=== PATIENT | male | born 1950 | race Asian ===

== ENCOUNTER → 2023-08-24 13:31 | Outpatient (REF) | payer MEDICARE, OTHER, SELFPAY ==
[2023-08-27 17:04] LABS: FIT-Fecal Occult Blood Interp Positive
== END ==
LOC: HWLAB 13:31
PROVIDERS: ATTENDING PHYSICIAN Internal Medicine
DX: R14.3 Flatulence (principal); Z83.3 Family history of diabetes mellitus; Z12.11 Encounter for screening for malignant neoplasm of colon; I10 Essential (primary) hypertension
CPT/HCPCS: 36415; 83520

== ENCOUNTER → 2023-10-07 06:34 | Day surgery (SDC) | payer MEDICARE, OTHER, SELFPAY | LOC: GI 06:34 | PROVIDERS: ATTENDING PHYSICIAN Internal Medicine Gastroenterology | DX: Z12.11 Encounter for screening for malignant neoplasm of colon (principal); R19.5 Other fecal abnormalities; K56.690 Other partial intestinal obstruction; K64.0 First degree hemorrhoids; D12.3 Benign neoplasm of transverse colon; C20 Malignant neoplasm of rectum | CPT/HCPCS: 45380; 88305; 88342 ==

== ENCOUNTER → 2023-10-09 12:30 | Outpatient (REF) | payer MEDICARE, OTHER, SELFPAY ==
[2023-10-09 15:34] LABS: % Basophils 0.7 % (0-2); % Eosinophils 1.2 % (0-6); % Immature Granulocytes 0.2 % (0-0.5); % Lymphocytes 21.8 % (20.5-51.1); % Monocytes 4.9 % (1.7-9.3); % Neutrophils 71.2 % (42.2-75.2); Absolute Eosinophils 0.1 10^3/uL (0-0.7); Absolute Lymphocytes 1.3 10^3/uL (1.2-3.4); Absolute Monocytes 0.3 10^3/uL (0.1-0.6); Absolute Neutrophils 4.1 10^3/uL (1.4-6.5); Hemoglobin 12.9 g/dL (13.0-18.0); Mean Corp Hgb Conc. 33.1 g/dL (33.0-37.0); Mean Corpuscular Hgb 30.2 pg (27.0-31.0); Mean Corpuscular Volume 91.3 fL (80.0-94.0); Mean Platelet Volume 10.2 fL (7.4-10.4); Nucleated Red Blood Cells % 0 % (-); Platelet Count 241 10^3/uL (130-400); Red Blood Cell Count 4.27 10^6/uL (4.70-6.10); White Blood Cell Count 5.7 10^3/uL (4.8-10.8)
[2023-10-09 15:51] LABS: ALT (SGPT) 16 U/L (0-50); AST (SGOT) 26 U/L (17-59); Alkaline Phosphatase 65 U/L (38-126); Blood Urea Nitrogen 14 mg/dl (9-20); Calcium 9.9 mg/dl (8.4-10.2); Carbon Dioxide 30 mmol/L (22-30); Chloride 102 mmol/L (98-107); Glucose 118 mg/dl (70-99); Potassium 4.1 mmol/L (3.5-5.1); Sodium 139 mmol/L (135-145); Total Bilirubin 0.5 mg/dl (0.2-1.3); Total Protein 6.7 g/dl (6.3-8.2); eGFR > 60.00
[2023-10-09 16:36] LABS: CEA 8.25 ng/ml
== END ==
LOC: HWLAB 12:30
PROVIDERS: ATTENDING PHYSICIAN Surgery; FAMILY PHYSICIAN Internal Medicine
DX: K62.89 Other specified diseases of anus and rectum (principal)
CPT/HCPCS: 36415; 80053; 82378; 85025

== ENCOUNTER → 2023-10-14 11:29 | Outpatient (REF) | payer MEDICARE, OTHER, SELFPAY | LOC: MRI 3T 11:29 | PROVIDERS: ATTENDING PHYSICIAN Surgery; FAMILY PHYSICIAN Internal Medicine | DX: K62.89 Other specified diseases of anus and rectum (principal) | CPT/HCPCS: 72197; A9575 ==

== ENCOUNTER → 2023-10-15 09:07 | Outpatient (REF) | payer MEDICARE, OTHER, SELFPAY | LOC: HWRAD 09:07 | PROVIDERS: ATTENDING PHYSICIAN Surgery; FAMILY PHYSICIAN Internal Medicine | DX: K62.89 Other specified diseases of anus and rectum (principal) | CPT/HCPCS: 71260; 74177; Q9967 ==

== ENCOUNTER 2023-11-12 08:58 | Outpatient (REF) | payer MEDICARE, OTHER, SELFPAY ==
[2023-11-12 09:32] LABS: Hematocrit 41.7 % (39.0-52.0); Hemoglobin 13.4 g/dL (13.0-18.0); Mean Corp Hgb Conc. 32.1 g/dL (33.0-37.0); Mean Corpuscular Hgb 30.2 pg (27.0-31.0); Mean Corpuscular Volume 93.9 fL (80.0-94.0); Mean Platelet Volume 9.1 fL (7.4-10.4); Platelet Count 259 10^3/uL (130-400); Red Blood Cell Count 4.44 10^6/uL (4.70-6.10); Red Cell Dist. Width 12.9 % (11.5-14.5); White Blood Cell Count 7.2 10^3/uL (4.8-10.8)
[2023-11-12 09:35] VITALS: BP 134/73; BP_SYST 59
[2023-11-12 09:41] LABS: INR 0.94; PT 12.6 Sec (11.4-14.6)
[2023-11-12 12:45] VITALS: BP 129/76
[2023-11-12 13:15] VITALS: BP 129/76
[2023-11-12 13:45] VITALS: BP 116/75
[2023-11-12 14:32] VITALS: BP 104/66
== END 2023-11-12 14:45 | disposition home or self-care (01) ==
LOC: RADI 08:58
PROVIDERS: ATTENDING PHYSICIAN Internal Medicine Hematology & Oncology; FAMILY PHYSICIAN Internal Medicine
DX: C78.01 Secondary malignant neoplasm of right lung (principal); C19 Malignant neoplasm of rectosigmoid junction
CPT/HCPCS: 88305; 32408; 36415; 71045; 85027; 85610; 88333; 88341; 88342; 99152; 99153; C2613

== ENCOUNTER → 2023-11-30 12:46 | Outpatient (REF) | payer MEDICARE, OTHER, SELFPAY ==
[2023-11-30 17:07] LABS: % Basophils 0.5 % (0-2); % Eosinophils 1.8 % (0-6); % Immature Granulocytes 0.7 % (0-0.5); % Lymphocytes 18.2 % (20.5-51.1); % Monocytes 6.3 % (1.7-9.3); % Neutrophils 72.5 % (42.2-75.2); Absolute Eosinophils 0.1 10^3/uL (0-0.7); Absolute Lymphocytes 1.1 10^3/uL (1.2-3.4); Absolute Monocytes 0.4 10^3/uL (0.1-0.6); Absolute Neutrophils 4.4 10^3/uL (1.4-6.5); Hematocrit 39.1 % (39.0-52.0); Hemoglobin 12.7 g/dL (13.0-18.0); Mean Corp Hgb Conc. 32.5 g/dL (33.0-37.0); Mean Corpuscular Hgb 29.6 pg (27.0-31.0); Mean Corpuscular Volume 91.1 fL (80.0-94.0); Mean Platelet Volume 9.2 fL (7.4-10.4); Nucleated Red Blood Cells % 0 % (-); Platelet Count 301 10^3/uL (130-400); Red Blood Cell Count 4.29 10^6/uL (4.70-6.10); Red Cell Dist. Width 12.2 % (11.5-14.5)
[2023-11-30 17:14] LABS: ALT (SGPT) 13 U/L (0-50); AST (SGOT) 20 U/L (17-59); Albumin 4.1 g/dl (3.5-5.0); Blood Urea Nitrogen 20 mg/dl (9-20); Calcium 9.9 mg/dl (8.4-10.2); Carbon Dioxide 28 mmol/L (22-30); Chloride 102 mmol/L (98-107); Glucose 103 mg/dl (70-99); Potassium 4.6 mmol/L (3.5-5.1); Sodium 137 mmol/L (135-145); Total Bilirubin 0.5 mg/dl (0.2-1.3); Total Protein 7.2 g/dl (6.3-8.2); eGFR > 60.00
[2023-11-30 18:24] LABS: Alkaline Phosphatase 75 U/L (38-126)
== END ==
LOC: HWLAB 12:46
PROVIDERS: ATTENDING PHYSICIAN Internal Medicine Hematology & Oncology; FAMILY PHYSICIAN Internal Medicine
DX: C20 Malignant neoplasm of rectum (principal); R91.1 Solitary pulmonary nodule; C77.2 Secondary and unspecified malignant neoplasm of intra-abdominal lymph nodes
CPT/HCPCS: 36415; 80053; 85025

== ENCOUNTER → 2023-12-07 12:34 | Outpatient (REF) | payer MEDICARE, OTHER, SELFPAY ==
[2023-12-07 15:48] LABS: % Basophils 0.4 % (0-2); % Eosinophils 2.2 % (0-6); % Immature Granulocytes 0.2 % (0-0.5); % Monocytes 8.8 % (1.7-9.3); % Neutrophils 72.4 % (42.2-75.2); Absolute Eosinophils 0.1 10^3/uL (0-0.7); Absolute Lymphocytes 0.8 10^3/uL (1.2-3.4); Absolute Monocytes 0.4 10^3/uL (0.1-0.6); Absolute Neutrophils 3.6 10^3/uL (1.4-6.5); Hematocrit 37.5 % (39.0-52.0); Hemoglobin 12.2 g/dL (13.0-18.0); Mean Corp Hgb Conc. 32.5 g/dL (33.0-37.0); Mean Corpuscular Hgb 30.1 pg (27.0-31.0); Mean Corpuscular Volume 92.6 fL (80.0-94.0); Mean Platelet Volume 9.8 fL (7.4-10.4); Nucleated Red Blood Cells % 0 % (-); Platelet Count 191 10^3/uL (130-400); Red Blood Cell Count 4.05 10^6/uL (4.70-6.10); Red Cell Dist. Width 12.6 % (11.5-14.5)
== END ==
LOC: HWLAB 12:34
PROVIDERS: ATTENDING PHYSICIAN Internal Medicine Hematology & Oncology; FAMILY PHYSICIAN Internal Medicine
DX: C20 Malignant neoplasm of rectum (principal); R91.1 Solitary pulmonary nodule; C77.2 Secondary and unspecified malignant neoplasm of intra-abdominal lymph nodes
CPT/HCPCS: 36415; 85025

== ENCOUNTER → 2023-12-14 12:45 | Outpatient (REF) | payer MEDICARE, OTHER, SELFPAY ==
[2023-12-14 16:04] LABS: % Basophils 0.7 % (0-2); % Eosinophils 3.1 % (0-6); % Immature Granulocytes 0.2 % (0-0.5); % Lymphocytes 14.9 % (20.5-51.1); % Monocytes 7.7 % (1.7-9.3); % Neutrophils 73.4 % (42.2-75.2); Absolute Eosinophils 0.1 10^3/uL (0-0.7); Absolute Lymphocytes 0.7 10^3/uL (1.2-3.4); Absolute Monocytes 0.4 10^3/uL (0.1-0.6); Absolute Neutrophils 3.4 10^3/uL (1.4-6.5); Hematocrit 35.8 % (39.0-52.0); Hemoglobin 11.7 g/dL (13.0-18.0); Mean Corp Hgb Conc. 32.7 g/dL (33.0-37.0); Mean Corpuscular Hgb 29.5 pg (27.0-31.0); Mean Corpuscular Volume 90.4 fL (80.0-94.0); Mean Platelet Volume 9.2 fL (7.4-10.4); Nucleated Red Blood Cells % 0 % (-); Platelet Count 191 10^3/uL (130-400); Red Blood Cell Count 3.96 10^6/uL (4.70-6.10); Red Cell Dist. Width 13.2 % (11.5-14.5); White Blood Cell Count 4.6 10^3/uL (4.8-10.8)
[2023-12-14 16:13] LABS: ALT (SGPT) 13 U/L (0-50); AST (SGOT) 20 U/L (17-59); Albumin 3.9 g/dl (3.5-5.0); Alkaline Phosphatase 69 U/L (38-126); Blood Urea Nitrogen 14 mg/dl (9-20); Calcium 9.4 mg/dl (8.4-10.2); Carbon Dioxide 28 mmol/L (22-30); Chloride 103 mmol/L (98-107); Glucose 106 mg/dl (70-99); Potassium 4.1 mmol/L (3.5-5.1); Sodium 137 mmol/L (135-145); Total Bilirubin 0.4 mg/dl (0.2-1.3); Total Protein 6.6 g/dl (6.3-8.2); eGFR > 60.00
== END ==
LOC: HWLAB 12:45
PROVIDERS: ATTENDING PHYSICIAN Internal Medicine Hematology & Oncology; FAMILY PHYSICIAN Internal Medicine
DX: C20 Malignant neoplasm of rectum (principal); R91.1 Solitary pulmonary nodule; C77.2 Secondary and unspecified malignant neoplasm of intra-abdominal lymph nodes
CPT/HCPCS: 36415; 80053; 85025

== ENCOUNTER → 2023-12-21 09:04 | Outpatient (REF) | payer MEDICARE, OTHER, SELFPAY ==
[2023-12-21 11:26] LABS: % Basophils 0.5 % (0-2); % Eosinophils 2.4 % (0-6); % Immature Granulocytes 0.2 % (0-0.5); % Lymphocytes 11.1 % (20.5-51.1); % Monocytes 9.2 % (1.7-9.3); % Neutrophils 76.6 % (42.2-75.2); Absolute Eosinophils 0.2 10^3/uL (0-0.7); Absolute Lymphocytes 0.7 10^3/uL (1.2-3.4); Absolute Monocytes 0.6 10^3/uL (0.1-0.6); Absolute Neutrophils 4.8 10^3/uL (1.4-6.5); Hematocrit 37.9 % (39.0-52.0); Hemoglobin 11.8 g/dL (13.0-18.0); Mean Corp Hgb Conc. 31.1 g/dL (33.0-37.0); Mean Corpuscular Hgb 29.4 pg (27.0-31.0); Mean Corpuscular Volume 94.5 fL (80.0-94.0); Mean Platelet Volume 8.9 fL (7.4-10.4); Nucleated Red Blood Cells % 0 % (-); Platelet Count 210 10^3/uL (130-400); Red Blood Cell Count 4.01 10^6/uL (4.70-6.10); Red Cell Dist. Width 13.8 % (11.5-14.5); White Blood Cell Count 6.3 10^3/uL (4.8-10.8)
== END ==
LOC: HWLAB 09:04
PROVIDERS: ATTENDING PHYSICIAN Internal Medicine Hematology & Oncology; FAMILY PHYSICIAN Internal Medicine
DX: C20 Malignant neoplasm of rectum (principal); R91.1 Solitary pulmonary nodule; C77.2 Secondary and unspecified malignant neoplasm of intra-abdominal lymph nodes
CPT/HCPCS: 85025

== ENCOUNTER → 2023-12-28 08:34 | Outpatient (REF) | payer MEDICARE, OTHER, SELFPAY ==
[2023-12-28 10:00] LABS: % Basophils 0.4 % (0-2); % Immature Granulocytes 0.2 % (0-0.5); % Lymphocytes 11.5 % (20.5-51.1); % Monocytes 10.4 % (1.7-9.3); % Neutrophils 73.5 % (42.2-75.2); Absolute Eosinophils 0.2 10^3/uL (0-0.7); Absolute Lymphocytes 0.6 10^3/uL (1.2-3.4); Absolute Monocytes 0.5 10^3/uL (0.1-0.6); Absolute Neutrophils 3.5 10^3/uL (1.4-6.5); Hematocrit 37.1 % (39.0-52.0); Hemoglobin 12.2 g/dL (13.0-18.0); Mean Corp Hgb Conc. 32.9 g/dL (33.0-37.0); Mean Corpuscular Hgb 30.3 pg (27.0-31.0); Mean Corpuscular Volume 92.3 fL (80.0-94.0); Mean Platelet Volume 8.6 fL (7.4-10.4); Nucleated Red Blood Cells % 0 % (-); Platelet Count 253 10^3/uL (130-400); Red Blood Cell Count 4.02 10^6/uL (4.70-6.10); Red Cell Dist. Width 14.6 % (11.5-14.5); White Blood Cell Count 4.8 10^3/uL (4.8-10.8)
[2023-12-28 10:21] LABS: ALT (SGPT) 12 U/L (0-50); AST (SGOT) 17 U/L (17-59); Albumin 3.9 g/dl (3.5-5.0); Alkaline Phosphatase 65 U/L (38-126); Blood Urea Nitrogen 14 mg/dl (9-20); Calcium 9.4 mg/dl (8.4-10.2); Carbon Dioxide 30 mmol/L (22-30); Chloride 101 mmol/L (98-107); Glucose 117 mg/dl (70-99); Potassium 4.2 mmol/L (3.5-5.1); Sodium 140 mmol/L (135-145); Total Bilirubin 0.5 mg/dl (0.2-1.3); Total Protein 6.7 g/dl (6.3-8.2); eGFR > 60.00
== END ==
LOC: HWLAB 08:34
PROVIDERS: ATTENDING PHYSICIAN Internal Medicine Hematology & Oncology; FAMILY PHYSICIAN Internal Medicine
DX: C20 Malignant neoplasm of rectum (principal); R91.1 Solitary pulmonary nodule; C77.2 Secondary and unspecified malignant neoplasm of intra-abdominal lymph nodes
CPT/HCPCS: 36415; 80053; 85025

== ENCOUNTER → 2024-01-04 08:16 | Outpatient (REF) | payer MEDICARE, OTHER, SELFPAY ==
[2024-01-04 13:05] LABS: % Basophils 0.4 % (0-2); % Eosinophils 3.2 % (0-6); % Immature Granulocytes 0.4 % (0-0.5); % Lymphocytes 8.3 % (20.5-51.1); % Monocytes 10.5 % (1.7-9.3); % Neutrophils 77.2 % (42.2-75.2); Absolute Eosinophils 0.2 10^3/uL (0-0.7); Absolute Lymphocytes 0.4 10^3/uL (1.2-3.4); Absolute Monocytes 0.5 10^3/uL (0.1-0.6); Absolute Neutrophils 3.9 10^3/uL (1.4-6.5); Hematocrit 36.8 % (39.0-52.0); Hemoglobin 12.1 g/dL (13.0-18.0); Mean Corp Hgb Conc. 32.9 g/dL (33.0-37.0); Mean Corpuscular Hgb 30.3 pg (27.0-31.0); Mean Corpuscular Volume 92.2 fL (80.0-94.0); Mean Platelet Volume 9.4 fL (7.4-10.4); Nucleated Red Blood Cells % 0 % (-); Platelet Count 229 10^3/uL (130-400); Red Blood Cell Count 3.99 10^6/uL (4.70-6.10); Red Cell Dist. Width 15.8 % (11.5-14.5)
== END ==
LOC: HWLAB 08:16
PROVIDERS: ATTENDING PHYSICIAN Internal Medicine Hematology & Oncology; FAMILY PHYSICIAN Internal Medicine
DX: C20 Malignant neoplasm of rectum (principal); R91.1 Solitary pulmonary nodule; C77.2 Secondary and unspecified malignant neoplasm of intra-abdominal lymph nodes
CPT/HCPCS: 36415; 85025

== ENCOUNTER → 2024-01-11 11:20 | Outpatient (REF) | payer MEDICARE, OTHER, SELFPAY ==
[2024-01-11 15:15] LABS: % Basophils 0.6 % (0-2); % Eosinophils 2.6 % (0-6); % Immature Granulocytes 0.4 % (0-0.5); % Lymphocytes 7.9 % (20.5-51.1); % Monocytes 10.4 % (1.7-9.3); % Neutrophils 78.1 % (42.2-75.2); Absolute Eosinophils 0.1 10^3/uL (0-0.7); Absolute Lymphocytes 0.4 10^3/uL (1.2-3.4); Absolute Monocytes 0.5 10^3/uL (0.1-0.6); Hematocrit 36.9 % (39.0-52.0); Hemoglobin 12.3 g/dL (13.0-18.0); Mean Corp Hgb Conc. 33.3 g/dL (33.0-37.0); Mean Corpuscular Hgb 31.7 pg (27.0-31.0); Mean Corpuscular Volume 95.1 fL (80.0-94.0); Mean Platelet Volume 9.2 fL (7.4-10.4); Nucleated Red Blood Cells % 0 % (-); Platelet Count 197 10^3/uL (130-400); Red Blood Cell Count 3.88 10^6/uL (4.70-6.10); Red Cell Dist. Width 16.3 % (11.5-14.5); White Blood Cell Count 5.1 10^3/uL (4.8-10.8)
[2024-01-11 15:26] LABS: ALT (SGPT) 18 U/L (0-50); AST (SGOT) 28 U/L (17-59); Albumin 3.9 g/dl (3.5-5.0); Alkaline Phosphatase 75 U/L (38-126); Blood Urea Nitrogen 19 mg/dl (9-20); Calcium 9.4 mg/dl (8.4-10.2); Carbon Dioxide 30 mmol/L (22-30); Chloride 103 mmol/L (98-107); Glucose 147 mg/dl (70-99); Potassium 4.3 mmol/L (3.5-5.1); Sodium 140 mmol/L (135-145); Total Bilirubin 0.7 mg/dl (0.2-1.3); Total Protein 6.6 g/dl (6.3-8.2); eGFR > 60.00
== END ==
LOC: HWLAB 11:20
PROVIDERS: ATTENDING PHYSICIAN Internal Medicine Hematology & Oncology; FAMILY PHYSICIAN Internal Medicine
DX: C20 Malignant neoplasm of rectum (principal); R91.1 Solitary pulmonary nodule; C77.2 Secondary and unspecified malignant neoplasm of intra-abdominal lymph nodes
CPT/HCPCS: 36415; 80053; 85025

== ENCOUNTER → 2024-01-18 10:42 | Outpatient (REF) | payer MEDICARE, OTHER, SELFPAY ==
[2024-01-18 12:34] LABS: % Basophils 0.7 % (0-2); % Eosinophils 2.6 % (0-6); % Immature Granulocytes 0.2 % (0-0.5); % Lymphocytes 15.9 % (20.5-51.1); % Monocytes 9.9 % (1.7-9.3); % Neutrophils 70.7 % (42.2-75.2); Absolute Eosinophils 0.1 10^3/uL (0-0.7); Absolute Lymphocytes 0.7 10^3/uL (1.2-3.4); Absolute Monocytes 0.5 10^3/uL (0.1-0.6); Absolute Neutrophils 3.2 10^3/uL (1.4-6.5); Hematocrit 36.9 % (39.0-52.0); Hemoglobin 12.1 g/dL (13.0-18.0); Mean Corp Hgb Conc. 32.8 g/dL (33.0-37.0); Mean Corpuscular Hgb 30.3 pg (27.0-31.0); Mean Corpuscular Volume 92.5 fL (80.0-94.0); Mean Platelet Volume 9.1 fL (7.4-10.4); Nucleated Red Blood Cells % 0 % (-); Platelet Count 263 10^3/uL (130-400); Red Blood Cell Count 3.99 10^6/uL (4.70-6.10); Red Cell Dist. Width 15.9 % (11.5-14.5); White Blood Cell Count 4.5 10^3/uL (4.8-10.8)
== END ==
LOC: HWLAB 10:42
PROVIDERS: ATTENDING PHYSICIAN Internal Medicine Hematology & Oncology; FAMILY PHYSICIAN Internal Medicine
DX: C20 Malignant neoplasm of rectum (principal); R91.1 Solitary pulmonary nodule; C77.2 Secondary and unspecified malignant neoplasm of intra-abdominal lymph nodes
CPT/HCPCS: 36415; 85025

== ENCOUNTER 2024-02-03 06:24 | Day surgery (SDC) | payer MEDICARE, OTHER, SELFPAY ==
[2024-02-02 14:07] VITALS: BMI 25.0
[2024-02-03] VITALS (7 sets, daily range): BP systolic 105–142; BP diastolic 60–84; BMI 25.0
== END 2024-02-03 16:45 | disposition home or self-care (01) ==
LOC: SDS 06:24
PROVIDERS: ATTENDING PHYSICIAN Surgery; FAMILY PHYSICIAN Surgery Vascular Surgery
DX: C20 Malignant neoplasm of rectum (principal)
CPT/HCPCS: 36561; 36415; 71045; 76000; 93005; C1788

== ENCOUNTER → 2024-03-01 09:27 | Outpatient (REF) | payer MEDICARE, OTHER, SELFPAY ==
[2024-03-01 11:50] LABS: ALT (SGPT) 14 U/L (0-50); AST (SGOT) 22 U/L (17-59); Alkaline Phosphatase 73 U/L (38-126); Blood Urea Nitrogen 16 mg/dl (9-20); Calcium 9.4 mg/dl (8.4-10.2); Carbon Dioxide 27 mmol/L (22-30); Chloride 105 mmol/L (98-107); Glucose 105 mg/dl (70-99); HDL Cholesterol 68 mg/dl; LDL Cholesterol, Calculated 103 mg/dl; Sodium 141 mmol/L (135-145); Total Bilirubin 0.9 mg/dl (0.2-1.3); Total Cholesterol 183 mg/dl (50-199); Total Protein 6.8 g/dl (6.3-8.2); Triglyceride 62 mg/dl (10-149); Very Low Density Lipoprotein 12 mg/dl (0-30); eGFR > 60.00
[2024-03-01 11:52] LABS: % Basophils 0.5 % (0-2); % Eosinophils 2.6 % (0-6); % Immature Granulocytes 0.3 % (0-0.5); % Lymphocytes 13.1 % (20.5-51.1); % Monocytes 7.8 % (1.7-9.3); % Neutrophils 75.7 % (42.2-75.2); Absolute Eosinophils 0.1 10^3/uL (0-0.7); Absolute Lymphocytes 0.5 10^3/uL (1.2-3.4); Absolute Monocytes 0.3 10^3/uL (0.1-0.6); Absolute Neutrophils 2.9 10^3/uL (1.4-6.5); Hematocrit 39.1 % (39.0-52.0); Mean Corp Hgb Conc. 33.2 g/dL (33.0-37.0); Mean Corpuscular Hgb 31.6 pg (27.0-31.0); Mean Corpuscular Volume 94.9 fL (80.0-94.0); Mean Platelet Volume 9.2 fL (7.4-10.4); Nucleated Red Blood Cells % 0 % (-); Platelet Count 201 10^3/uL (130-400); Red Blood Cell Count 4.12 10^6/uL (4.70-6.10); Red Cell Dist. Width 14.6 % (11.5-14.5); White Blood Cell Count 3.8 10^3/uL (4.8-10.8)
[2024-03-01 12:58] LABS: Glycohemoglobin (HgbA1c) 5.9 % (4.0-5.6)
[2024-03-02 10:53] LABS: IgA 380 mg/dl (70-400)
[2024-03-02 14:11] LABS: tTG IgA Antibody 11.8 EU/ml (0-19)
[2024-03-04 00:53] LABS: Gliadin Peptide (DGP) Ab, IgA <0.72 FLU (0.00-4.99)
== END ==
LOC: HWLAB 09:27
PROVIDERS: ATTENDING PHYSICIAN Internal Medicine
DX: I10 Essential (primary) hypertension (principal); Z83.3 Family history of diabetes mellitus; C20 Malignant neoplasm of rectum
CPT/HCPCS: 36415; 80053; 80061; 82784; 83036; 83516; 85025; 86231; 86258

== ENCOUNTER → 2024-03-29 09:18 | Outpatient (REF) | payer MEDICARE, OTHER, SELFPAY ==
[2024-03-29 12:19] LABS: % Basophils 0.2 % (0-2); % Eosinophils 0.9 % (0-6); % Immature Granulocytes 0.2 % (0-0.5); % Lymphocytes 4.8 % (20.5-51.1); % Monocytes 6.3 % (1.7-9.3); % Neutrophils 87.6 % (42.2-75.2); Absolute Eosinophils 0.1 10^3/uL (0-0.7); Absolute Lymphocytes 0.3 10^3/uL (1.2-3.4); Absolute Monocytes 0.4 10^3/uL (0.1-0.6); Absolute Neutrophils 5.1 10^3/uL (1.4-6.5); Hematocrit 38.7 % (39.0-52.0); Hemoglobin 12.6 g/dL (13.0-18.0); Mean Corp Hgb Conc. 32.6 g/dL (33.0-37.0); Mean Corpuscular Hgb 30.3 pg (27.0-31.0); Mean Platelet Volume 9.1 fL (7.4-10.4); Nucleated Red Blood Cells % 0 % (-); Platelet Count 184 10^3/uL (130-400); Red Blood Cell Count 4.16 10^6/uL (4.70-6.10); Red Cell Dist. Width 13.2 % (11.5-14.5); White Blood Cell Count 5.9 10^3/uL (4.8-10.8)
[2024-03-29 13:43] LABS: ALT (SGPT) 17 U/L (0-50); AST (SGOT) 20 U/L (17-59); Albumin 4.1 g/dl (3.5-5.0); Alkaline Phosphatase 58 U/L (38-126); Blood Urea Nitrogen 15 mg/dl (9-20); Calcium 9.3 mg/dl (8.4-10.2); Carbon Dioxide 27 mmol/L (22-30); Chloride 100 mmol/L (98-107); Glucose 136 mg/dl (70-99); Potassium 4.3 mmol/L (3.5-5.1); Sodium 138 mmol/L (135-145); Total Bilirubin 0.9 mg/dl (0.2-1.3); Total Protein 6.9 g/dl (6.3-8.2); eGFR > 60.00
[2024-03-29 14:11] LABS: CEA 5.75 ng/ml
== END ==
LOC: HWLAB 09:18
PROVIDERS: ATTENDING PHYSICIAN Internal Medicine Hematology & Oncology; FAMILY PHYSICIAN Internal Medicine
DX: C20 Malignant neoplasm of rectum (principal); R91.1 Solitary pulmonary nodule; C77.2 Secondary and unspecified malignant neoplasm of intra-abdominal lymph nodes
CPT/HCPCS: 36415; 80053; 82378; 85025

== ENCOUNTER → 2024-04-11 10:27 | Outpatient (REF) | payer MEDICARE, OTHER, SELFPAY ==
[2024-04-11 11:18] LABS: % Basophils 0.6 % (0-2); % Eosinophils 2.1 % (0-6); % Immature Granulocytes 0.3 % (0-0.5); % Lymphocytes 19.3 % (20.5-51.1); % Monocytes 10.3 % (1.7-9.3); % Neutrophils 67.4 % (42.2-75.2); Absolute Eosinophils 0.1 10^3/uL (0-0.7); Absolute Lymphocytes 0.6 10^3/uL (1.2-3.4); Absolute Monocytes 0.3 10^3/uL (0.1-0.6); Absolute Neutrophils 2.2 10^3/uL (1.4-6.5); Hemoglobin 12.7 g/dL (13.0-18.0); Mean Corp Hgb Conc. 33.4 g/dL (33.0-37.0); Mean Corpuscular Hgb 31.7 pg (27.0-31.0); Mean Corpuscular Volume 94.8 fL (80.0-94.0); Mean Platelet Volume 8.7 fL (7.4-10.4); Nucleated Red Blood Cells % 0 % (-); Platelet Count 152 10^3/uL (130-400); Red Blood Cell Count 4.01 10^6/uL (4.70-6.10); Red Cell Dist. Width 13.2 % (11.5-14.5); White Blood Cell Count 3.3 10^3/uL (4.8-10.8)
[2024-04-11 11:28] LABS: ALT (SGPT) 18 U/L (0-50); AST (SGOT) 19 U/L (17-59); Albumin 3.9 g/dl (3.5-5.0); Alkaline Phosphatase 59 U/L (38-126); Blood Urea Nitrogen 17 mg/dl (9-20); Calcium 9.1 mg/dl (8.4-10.2); Carbon Dioxide 30 mmol/L (22-30); Chloride 103 mmol/L (98-107); Glucose 112 mg/dl (70-99); Potassium 4.1 mmol/L (3.5-5.1); Sodium 142 mmol/L (135-145); Total Bilirubin 0.1 mg/dl (0.2-1.3); Total Protein 6.4 g/dl (6.3-8.2); eGFR > 60.00
== END ==
LOC: HWLAB 10:27
PROVIDERS: ATTENDING PHYSICIAN Internal Medicine Hematology & Oncology; FAMILY PHYSICIAN Internal Medicine
DX: C20 Malignant neoplasm of rectum (principal); R91.1 Solitary pulmonary nodule; C77.2 Secondary and unspecified malignant neoplasm of intra-abdominal lymph nodes
CPT/HCPCS: 36415; 80053; 85025

== ENCOUNTER → 2024-04-13 13:52 | Outpatient (REF) | payer MEDICARE, OTHER, SELFPAY ==
[2024-04-13 10:36] LABS: Iron 129 ug/dl (49-181)
[2024-04-13 10:45] LABS: Percent Saturation 44 % (20-50); Total Iron Binding Capacity 290 ug/dl (261-462)
[2024-04-13 11:12] LABS: Ferritin 89.4 ng/ml (17.9-464.0)
== END ==
LOC: OIDL 13:52
PROVIDERS: ATTENDING PHYSICIAN Nurse Practitioner Adult Health
DX: C20 Malignant neoplasm of rectum (principal); C77.2 Secondary and unspecified malignant neoplasm of intra-abdominal lymph nodes; R91.1 Solitary pulmonary nodule
CPT/HCPCS: 82728; 83540; 83550

== ENCOUNTER → 2024-04-25 09:38 | Outpatient (REF) | payer MEDICARE, OTHER, SELFPAY ==
[2024-04-25 11:23] LABS: % Basophils 0.5 % (0-2); % Eosinophils 0.8 % (0-6); % Immature Granulocytes 0.3 % (0-0.5); % Lymphocytes 21.2 % (20.5-51.1); % Monocytes 13.4 % (1.7-9.3); % Neutrophils 63.8 % (42.2-75.2); Absolute Lymphocytes 0.8 10^3/uL (1.2-3.4); Absolute Monocytes 0.5 10^3/uL (0.1-0.6); Absolute Neutrophils 2.5 10^3/uL (1.4-6.5); Hematocrit 36.8 % (39.0-52.0); Hemoglobin 12.2 g/dL (13.0-18.0); Mean Corp Hgb Conc. 33.2 g/dL (33.0-37.0); Mean Corpuscular Volume 93.4 fL (80.0-94.0); Mean Platelet Volume 8.8 fL (7.4-10.4); Nucleated Red Blood Cells % 0 % (-); Platelet Count 134 10^3/uL (130-400); Red Blood Cell Count 3.94 10^6/uL (4.70-6.10); Red Cell Dist. Width 13.4 % (11.5-14.5)
[2024-04-25 11:43] LABS: ALT (SGPT) 21 U/L (0-50); AST (SGOT) 20 U/L (17-59); Albumin 3.9 g/dl (3.5-5.0); Alkaline Phosphatase 63 U/L (38-126); Blood Urea Nitrogen 22 mg/dl (9-20); Carbon Dioxide 24 mmol/L (22-30); Chloride 104 mmol/L (98-107); Glucose 128 mg/dl (70-99); Sodium 140 mmol/L (135-145); Total Bilirubin 0.2 mg/dl (0.2-1.3); Total Protein 6.5 g/dl (6.3-8.2); eGFR > 60.00
== END ==
LOC: HWLAB 09:38
PROVIDERS: ATTENDING PHYSICIAN Internal Medicine Hematology & Oncology; FAMILY PHYSICIAN Internal Medicine
DX: C20 Malignant neoplasm of rectum (principal); R91.1 Solitary pulmonary nodule; C77.2 Secondary and unspecified malignant neoplasm of intra-abdominal lymph nodes
CPT/HCPCS: 36415; 80053; 85025

== ENCOUNTER → 2024-04-27 15:51 | Outpatient (REF) | payer MEDICARE, OTHER, SELFPAY ==
[2024-04-27 14:36] LABS: CEA 4.84 ng/ml
== END ==
LOC: OIDL 15:51
PROVIDERS: ATTENDING PHYSICIAN Nurse Practitioner Adult Health
DX: C20 Malignant neoplasm of rectum (principal)
CPT/HCPCS: 82378

== ENCOUNTER → 2024-05-09 09:37 | Outpatient (REF) | payer MEDICARE, OTHER, SELFPAY ==
[2024-05-09 11:59] LABS: % Basophils 0.8 % (0-2); % Immature Granulocytes 0.3 % (0-0.5); % Lymphocytes 15.9 % (20.5-51.1); Absolute Lymphocytes 0.6 10^3/uL (1.2-3.4); Absolute Monocytes 0.4 10^3/uL (0.1-0.6); Absolute Neutrophils 2.8 10^3/uL (1.4-6.5); Hematocrit 38.4 % (39.0-52.0); Hemoglobin 12.8 g/dL (13.0-18.0); Mean Corp Hgb Conc. 33.3 g/dL (33.0-37.0); Mean Corpuscular Hgb 31.7 pg (27.0-31.0); Nucleated Red Blood Cells % 0 % (-); Platelet Count 98 10^3/uL (130-400); Red Blood Cell Count 4.04 10^6/uL (4.70-6.10); Red Cell Dist. Width 14.4 % (11.5-14.5); White Blood Cell Count 3.9 10^3/uL (4.8-10.8)
[2024-05-09 12:23] LABS: ALT (SGPT) 50 U/L (0-50); AST (SGOT) 44 U/L (17-59); Albumin 4.1 g/dl (3.5-5.0); Alkaline Phosphatase 68 U/L (38-126); Blood Urea Nitrogen 22 mg/dl (9-20); Calcium 9.2 mg/dl (8.4-10.2); Carbon Dioxide 27 mmol/L (22-30); Chloride 102 mmol/L (98-107); Glucose 124 mg/dl (70-99); Potassium 4.3 mmol/L (3.5-5.1); Sodium 141 mmol/L (135-145); Total Bilirubin 0.2 mg/dl (0.2-1.3); Total Protein 6.8 g/dl (6.3-8.2); eGFR > 60.00
== END ==
LOC: HWLAB 09:37
PROVIDERS: ATTENDING PHYSICIAN Internal Medicine Hematology & Oncology; FAMILY PHYSICIAN Internal Medicine
DX: C20 Malignant neoplasm of rectum (principal); R91.1 Solitary pulmonary nodule; C77.2 Secondary and unspecified malignant neoplasm of intra-abdominal lymph nodes
CPT/HCPCS: 36415; 80053; 85025

== ENCOUNTER → 2024-05-23 09:07 | Outpatient (REF) | payer MEDICARE, OTHER, SELFPAY ==
[2024-05-23 12:21] LABS: % Basophils 0.4 % (0-2); % Eosinophils 0.4 % (0-6); % Immature Granulocytes 0.2 % (0-0.5); % Lymphocytes 10.7 % (20.5-51.1); % Monocytes 13.3 % (1.7-9.3); Absolute Lymphocytes 0.5 10^3/uL (1.2-3.4); Absolute Monocytes 0.7 10^3/uL (0.1-0.6); Absolute Neutrophils 3.8 10^3/uL (1.4-6.5); Hemoglobin 12.4 g/dL (13.0-18.0); Mean Corp Hgb Conc. 32.6 g/dL (33.0-37.0); Mean Corpuscular Hgb 31.2 pg (27.0-31.0); Mean Corpuscular Volume 95.5 fL (80.0-94.0); Mean Platelet Volume 10.4 fL (7.4-10.4); Nucleated Red Blood Cells % 0 % (-); Platelet Count 70 10^3/uL (130-400); Red Blood Cell Count 3.98 10^6/uL (4.70-6.10); Red Cell Dist. Width 15.1 % (11.5-14.5)
[2024-05-23 12:24] LABS: ALT (SGPT) 111 U/L (0-50); AST (SGOT) 74 U/L (17-59); Albumin 3.7 g/dl (3.5-5.0); Alkaline Phosphatase 114 U/L (38-126); Blood Urea Nitrogen 13 mg/dl (9-20); Carbon Dioxide 29 mmol/L (22-30); Chloride 106 mmol/L (98-107); Glucose 114 mg/dl (70-99); Potassium 4.1 mmol/L (3.5-5.1); Sodium 140 mmol/L (135-145); Total Bilirubin 0.9 mg/dl (0.2-1.3); Total Protein 6.5 g/dl (6.3-8.2); eGFR > 60.00
== END ==
LOC: HWLAB 09:07
PROVIDERS: ATTENDING PHYSICIAN Internal Medicine Hematology & Oncology; FAMILY PHYSICIAN Internal Medicine
DX: C20 Malignant neoplasm of rectum (principal); R91.1 Solitary pulmonary nodule; C77.2 Secondary and unspecified malignant neoplasm of intra-abdominal lymph nodes
CPT/HCPCS: 36415; 80053; 85025

== ENCOUNTER → 2024-06-06 10:35 | Outpatient (REF) | payer MEDICARE, OTHER, SELFPAY ==
[2024-06-06 16:37] LABS: ALT (SGPT) 49 U/L (0-50); AST (SGOT) 45 U/L (17-59); Albumin 3.7 g/dl (3.5-5.0); Alkaline Phosphatase 121 U/L (38-126); Blood Urea Nitrogen 14 mg/dl (9-20); Calcium 8.9 mg/dl (8.4-10.2); Carbon Dioxide 29 mmol/L (22-30); Chloride 103 mmol/L (98-107); Glucose 122 mg/dl (70-99); Potassium 3.9 mmol/L (3.5-5.1); Sodium 140 mmol/L (135-145); Total Bilirubin 0.8 mg/dl (0.2-1.3); Total Protein 6.5 g/dl (6.3-8.2); eGFR > 60.00
[2024-06-06 16:46] LABS: % Basophils 0.4 % (0-2); % Eosinophils 0.2 % (0-6); % Immature Granulocytes 0.2 % (0-0.5); % Lymphocytes 6.9 % (20.5-51.1); % Neutrophils 79.3 % (42.2-75.2); Absolute Lymphocytes 0.3 10^3/uL (1.2-3.4); Absolute Monocytes 0.6 10^3/uL (0.1-0.6); Absolute Neutrophils 3.7 10^3/uL (1.4-6.5); Hematocrit 37.3 % (39.0-52.0); Mean Corp Hgb Conc. 32.2 g/dL (33.0-37.0); Mean Corpuscular Hgb 31.1 pg (27.0-31.0); Mean Corpuscular Volume 96.6 fL (80.0-94.0); Mean Platelet Volume 10.7 fL (7.4-10.4); Nucleated Red Blood Cells % 0 % (-); Platelet Count 98 10^3/uL (130-400); Red Blood Cell Count 3.86 10^6/uL (4.70-6.10); Red Cell Dist. Width 14.8 % (11.5-14.5); White Blood Cell Count 4.6 10^3/uL (4.8-10.8)
== END ==
LOC: HWLAB 10:35
PROVIDERS: ATTENDING PHYSICIAN Internal Medicine Hematology & Oncology; FAMILY PHYSICIAN Internal Medicine
DX: C20 Malignant neoplasm of rectum (principal); R91.1 Solitary pulmonary nodule; C77.2 Secondary and unspecified malignant neoplasm of intra-abdominal lymph nodes
CPT/HCPCS: 36415; 80053; 85025

== ENCOUNTER → 2024-06-27 10:24 | Outpatient (REF) | payer MEDICARE, OTHER, SELFPAY ==
[2024-06-27 12:16] LABS: % Basophils 0.8 % (0-2); % Eosinophils 0.8 % (0-6); % Immature Granulocytes 0.4 % (0-0.5); % Lymphocytes 23.1 % (20.5-51.1); % Neutrophils 56.9 % (42.2-75.2); Absolute Lymphocytes 0.6 10^3/uL (1.2-3.4); Absolute Monocytes 0.5 10^3/uL (0.1-0.6); Absolute Neutrophils 1.5 10^3/uL (1.4-6.5); Hematocrit 37.8 % (39.0-52.0); Mean Corp Hgb Conc. 31.7 g/dL (33.0-37.0); Mean Corpuscular Hgb 31.3 pg (27.0-31.0); Mean Corpuscular Volume 98.7 fL (80.0-94.0); Mean Platelet Volume 9.1 fL (7.4-10.4); Nucleated Red Blood Cells % 0 % (-); Platelet Count 185 10^3/uL (130-400); Red Blood Cell Count 3.83 10^6/uL (4.70-6.10); Red Cell Dist. Width 15.1 % (11.5-14.5); White Blood Cell Count 2.6 10^3/uL (4.8-10.8)
[2024-06-27 12:28] LABS: ALT (SGPT) 32 U/L (0-50); AST (SGOT) 28 U/L (17-59); Albumin 3.9 g/dl (3.5-5.0); Alkaline Phosphatase 106 U/L (38-126); Blood Urea Nitrogen 14 mg/dl (9-20); Calcium 9.2 mg/dl (8.4-10.2); Carbon Dioxide 33 mmol/L (22-30); Chloride 99 mmol/L (98-107); Glucose 137 mg/dl (70-99); Potassium 4.3 mmol/L (3.5-5.1); Sodium 140 mmol/L (135-145); Total Bilirubin 0.3 mg/dl (0.2-1.3); Total Protein 6.8 g/dl (6.3-8.2); eGFR > 60.00
[2024-06-27 19:03] LABS: CEA 4.99 ng/ml
== END ==
LOC: HWLAB 10:24
PROVIDERS: ATTENDING PHYSICIAN Internal Medicine Hematology & Oncology; FAMILY PHYSICIAN Internal Medicine
DX: C20 Malignant neoplasm of rectum (principal); C77.2 Secondary and unspecified malignant neoplasm of intra-abdominal lymph nodes; R91.1 Solitary pulmonary nodule
CPT/HCPCS: 36415; 80053; 82378; 85025

== ENCOUNTER → 2024-07-12 08:53 | Outpatient (REF) | payer MEDICARE, OTHER, SELFPAY ==
[2024-07-12 12:03] LABS: ALT (SGPT) 29 U/L (0-50); AST (SGOT) 32 U/L (17-59); Albumin 3.5 g/dl (3.5-5.0); Alkaline Phosphatase 82 U/L (38-126); Blood Urea Nitrogen 13 mg/dl (9-20); Calcium 8.5 mg/dl (8.4-10.2); Carbon Dioxide 27 mmol/L (22-30); Chloride 104 mmol/L (98-107); Glucose 142 mg/dl (70-99); Potassium 3.8 mmol/L (3.5-5.1); Sodium 139 mmol/L (135-145); Total Bilirubin 0.7 mg/dl (0.2-1.3); Total Protein 6.1 g/dl (6.3-8.2); eGFR > 60.00
[2024-07-12 12:11] LABS: % Basophils 0.8 % (0-2); % Eosinophils 1.9 % (0-6); % Immature Granulocytes 0.4 % (0-0.5); % Monocytes 15.6 % (1.7-9.3); % Neutrophils 65.3 % (42.2-75.2); Absolute Eosinophils 0.1 10^3/uL (0-0.7); Absolute Lymphocytes 0.4 10^3/uL (1.2-3.4); Absolute Monocytes 0.4 10^3/uL (0.1-0.6); Absolute Neutrophils 1.7 10^3/uL (1.4-6.5); Hematocrit 34.9 % (39.0-52.0); Hemoglobin 11.1 g/dL (13.0-18.0); Mean Corp Hgb Conc. 31.8 g/dL (33.0-37.0); Mean Corpuscular Hgb 31.4 pg (27.0-31.0); Mean Corpuscular Volume 98.6 fL (80.0-94.0); Nucleated Red Blood Cells % 0 % (-); Platelet Count 84 10^3/uL (130-400); Red Blood Cell Count 3.54 10^6/uL (4.70-6.10); Red Cell Dist. Width 15.9 % (11.5-14.5); White Blood Cell Count 2.6 10^3/uL (4.8-10.8)
== END ==
LOC: HWLAB 08:53
PROVIDERS: ATTENDING PHYSICIAN Internal Medicine Hematology & Oncology; FAMILY PHYSICIAN Internal Medicine
DX: C20 Malignant neoplasm of rectum (principal); C77.2 Secondary and unspecified malignant neoplasm of intra-abdominal lymph nodes; R91.1 Solitary pulmonary nodule
CPT/HCPCS: 36415; 80053; 85025

== ENCOUNTER → 2024-07-25 10:04 | Outpatient (REF) | payer MEDICARE, OTHER, SELFPAY ==
[2024-07-25 15:57] LABS: % Basophils 0.2 % (0-2); % Immature Granulocytes 0.4 % (0-0.5); % Lymphocytes 10.9 % (20.5-51.1); % Monocytes 14.5 % (1.7-9.3); Absolute Lymphocytes 0.6 10^3/uL (1.2-3.4); Absolute Monocytes 0.8 10^3/uL (0.1-0.6); Absolute Neutrophils 4.1 10^3/uL (1.4-6.5); Hematocrit 35.1 % (39.0-52.0); Hemoglobin 11.4 g/dL (13.0-18.0); Mean Corp Hgb Conc. 32.5 g/dL (33.0-37.0); Mean Corpuscular Hgb 32.2 pg (27.0-31.0); Mean Corpuscular Volume 99.2 fL (80.0-94.0); Mean Platelet Volume 9.7 fL (7.4-10.4); Nucleated Red Blood Cells % 0 % (-); Platelet Count 87 10^3/uL (130-400); Red Blood Cell Count 3.54 10^6/uL (4.70-6.10); Red Cell Dist. Width 16.3 % (11.5-14.5); White Blood Cell Count 5.6 10^3/uL (4.8-10.8)
[2024-07-25 15:59] LABS: ALT (SGPT) 35 U/L (0-50); AST (SGOT) 38 U/L (17-59); Albumin 4.1 g/dl (3.5-5.0); Alkaline Phosphatase 102 U/L (38-126); Blood Urea Nitrogen 19 mg/dl (9-20); Calcium 8.8 mg/dl (8.4-10.2); Carbon Dioxide 26 mmol/L (22-30); Chloride 102 mmol/L (98-107); Glucose 122 mg/dl (70-99); Potassium 4.1 mmol/L (3.5-5.1); Sodium 136 mmol/L (135-145); Total Bilirubin 0.6 mg/dl (0.2-1.3); eGFR > 60.00
== END ==
LOC: HWLAB 10:04
PROVIDERS: ATTENDING PHYSICIAN Internal Medicine Hematology & Oncology; FAMILY PHYSICIAN Internal Medicine
DX: C20 Malignant neoplasm of rectum (principal); C77.2 Secondary and unspecified malignant neoplasm of intra-abdominal lymph nodes; R91.1 Solitary pulmonary nodule
CPT/HCPCS: 36415; 80053; 85025

== ENCOUNTER → 2024-08-09 10:28 | Outpatient (REF) | payer MEDICARE, OTHER, SELFPAY ==
[2024-08-09 12:53] LABS: % Basophils 0.5 % (0-2); % Eosinophils 0.3 % (0-6); % Immature Granulocytes 0.3 % (0-0.5); % Lymphocytes 10.4 % (20.5-51.1); % Monocytes 14.2 % (1.7-9.3); % Neutrophils 74.3 % (42.2-75.2); Absolute Lymphocytes 0.4 10^3/uL (1.2-3.4); Absolute Monocytes 0.5 10^3/uL (0.1-0.6); Absolute Neutrophils 2.8 10^3/uL (1.4-6.5); Hematocrit 35.9 % (39.0-52.0); Hemoglobin 11.4 g/dL (13.0-18.0); Mean Corp Hgb Conc. 31.8 g/dL (33.0-37.0); Mean Corpuscular Volume 100.8 fL (80.0-94.0); Mean Platelet Volume 10.5 fL (7.4-10.4); Nucleated Red Blood Cells % 0 % (-); Platelet Count 88 10^3/uL (130-400); Red Blood Cell Count 3.56 10^6/uL (4.70-6.10); White Blood Cell Count 3.7 10^3/uL (4.8-10.8)
== END ==
LOC: HWLAB 10:28
PROVIDERS: ATTENDING PHYSICIAN Internal Medicine Hematology & Oncology; FAMILY PHYSICIAN Internal Medicine
DX: C20 Malignant neoplasm of rectum (principal); C77.2 Secondary and unspecified malignant neoplasm of intra-abdominal lymph nodes; R91.1 Solitary pulmonary nodule
CPT/HCPCS: 36415; 85025

== ENCOUNTER → 2024-09-02 10:40 | Outpatient (REF) | payer MEDICARE, OTHER, SELFPAY | LOC: RAD 10:40 | PROVIDERS: ATTENDING PHYSICIAN Internal Medicine Hematology & Oncology; FAMILY PHYSICIAN Internal Medicine | DX: C77.2 Secondary and unspecified malignant neoplasm of intra-abdominal lymph nodes (principal); C20 Malignant neoplasm of rectum; R91.1 Solitary pulmonary nodule; R22.42 Localized swelling, mass and lump, left lower limb | CPT/HCPCS: 93971 ==

== ENCOUNTER → 2024-11-10 10:00 | Outpatient (REF) | payer MEDICARE, OTHER, SELFPAY ==
[2024-11-10 10:05] LABS: % Basophils 0.5 % (0-2); % Eosinophils 3.6 % (0-6); % Immature Granulocytes 0.2 % (0-0.5); % Lymphocytes 19.9 % (20.5-51.1); % Monocytes 10.8 % (1.7-9.3); Absolute Eosinophils 0.2 10^3/uL (0-0.7); Absolute Lymphocytes 0.8 10^3/uL (1.2-3.4); Absolute Monocytes 0.5 10^3/uL (0.1-0.6); Absolute Neutrophils 2.7 10^3/uL (1.4-6.5); Hematocrit 41.1 % (39.0-52.0); Hemoglobin 13.5 g/dL (13.0-18.0); Mean Corp Hgb Conc. 32.8 g/dL (33.0-37.0); Mean Corpuscular Hgb 31.3 pg (27.0-31.0); Mean Corpuscular Volume 95.4 fL (80.0-94.0); Mean Platelet Volume 8.7 fL (7.4-10.4); Platelet Count 191 10^3/uL (130-400); Red Blood Cell Count 4.31 10^6/uL (4.70-6.10); White Blood Cell Count 4.2 10^3/uL (4.8-10.8)
[2024-11-10 11:13] LABS: ALT (SGPT) 35 U/L (0-50); AST (SGOT) 29 U/L (17-59); Albumin 4.3 g/dl (3.5-5.0); Alkaline Phosphatase 89 U/L (38-126); Blood Urea Nitrogen 19 mg/dl (9-20); Calcium 9.8 mg/dl (8.4-10.2); Carbon Dioxide 29 mmol/L (22-30); Chloride 106 mmol/L (98-107); Glucose 131 mg/dl (70-99); Potassium 4.3 mmol/L (3.5-5.1); Sodium 139 mmol/L (135-145); Total Bilirubin 0.6 mg/dl (0.2-1.3); Total Protein 7.1 g/dl (6.3-8.2); eGFR > 60.00
[2024-11-10 11:42] LABS: CEA 6.27 ng/ml
== END ==
LOC: OIDL 10:00
PROVIDERS: ATTENDING PHYSICIAN Internal Medicine Hematology & Oncology
DX: C20 Malignant neoplasm of rectum (principal); C72.20 Malignant neoplasm of unspecified olfactory nerve; R91.1 Solitary pulmonary nodule; R22.42 Localized swelling, mass and lump, left lower limb
CPT/HCPCS: 80053; 82378; 85025

== ENCOUNTER → 2024-11-30 10:37 | Outpatient (REF) | payer MEDICARE, OTHER, SELFPAY | LOC: RAD 10:37 | PROVIDERS: ATTENDING PHYSICIAN Internal Medicine Hematology & Oncology; FAMILY PHYSICIAN Internal Medicine | DX: C20 Malignant neoplasm of rectum (principal); C77.2 Secondary and unspecified malignant neoplasm of intra-abdominal lymph nodes; R91.1 Solitary pulmonary nodule | CPT/HCPCS: 71260; 74177; Q9967 ==

== ENCOUNTER → 2025-01-06 08:52 | Outpatient (REF) | payer MEDICARE, OTHER, SELFPAY | LOC: MRI 3T 08:52 | PROVIDERS: ATTENDING PHYSICIAN Surgery; FAMILY PHYSICIAN Internal Medicine | DX: C20 Malignant neoplasm of rectum (principal) | CPT/HCPCS: 72197; A9575 ==

== ENCOUNTER 2025-01-25 06:17 | Day surgery (SDC) | payer MEDICARE, OTHER, SELFPAY | END 2025-01-25 15:28 | disposition home or self-care (01) | LOC: GI 06:17 | PROVIDERS: ATTENDING PHYSICIAN Surgery | DX: Z12.11 Encounter for screening for malignant neoplasm of colon (principal); K62.89 Other specified diseases of anus and rectum; Z85.048 Personal history of other malignant neoplasm of rectum, rectosigmoid junction, and anus | CPT/HCPCS: G0105 ==

== ENCOUNTER → 2025-02-02 10:40 | Outpatient (REF) | payer MEDICARE, OTHER, SELFPAY ==
[2025-02-02 10:46] LABS: Hematocrit 39.7 % (39.0-52.0); Hemoglobin 13.1 g/dL (13.0-18.0); Mean Corp Hgb Conc. 33.0 g/dL (33.0-37.0); Mean Corpuscular Volume 94.7 fL (80.0-94.0); Platelet Count 176 10^3/uL (130-400); Red Cell Dist. Width 12.9 % (11.5-14.5)
[2025-02-02 12:05] LABS: ALT (SGPT) 26 U/L (0-50); AST (SGOT) 23 U/L (17-59); Albumin 4.3 g/dl (3.5-5.0); Alkaline Phosphatase 68 U/L (38-126); Blood Urea Nitrogen 17 mg/dl (9-20); Calcium 9.3 mg/dl (8.4-10.2); Carbon Dioxide 27 mmol/L (22-30); Chloride 107 mmol/L (98-107); Glucose 142 mg/dl (70-99); Potassium 3.9 mmol/L (3.5-5.1); Sodium 139 mmol/L (135-145); Total Protein 7.0 g/dl (6.3-8.2); eGFR > 60.00
[2025-02-02 12:42] LABS: CEA 7.39 ng/ml
== END ==
LOC: OIDL 10:40
PROVIDERS: ATTENDING PHYSICIAN Internal Medicine Hematology & Oncology
DX: C20 Malignant neoplasm of rectum (principal); C77.2 Secondary and unspecified malignant neoplasm of intra-abdominal lymph nodes; R91.1 Solitary pulmonary nodule; R22.42 Localized swelling, mass and lump, left lower limb
CPT/HCPCS: 80053; 82378; 85025

== ENCOUNTER → 2025-03-22 11:31 | Outpatient (REF) | payer MEDICARE, OTHER, SELFPAY | LOC: HWRAD 11:31 | PROVIDERS: ATTENDING PHYSICIAN Radiology Radiation Oncology; FAMILY PHYSICIAN Internal Medicine | DX: C20 Malignant neoplasm of rectum (principal) | CPT/HCPCS: 71250 ==

== ENCOUNTER → 2025-04-07 12:05 | Outpatient (REF) | payer MEDICARE, OTHER, SELFPAY | LOC: REG 12:05 | PROVIDERS: ATTENDING PHYSICIAN Internal Medicine Hematology & Oncology; FAMILY PHYSICIAN Internal Medicine | DX: C20 Malignant neoplasm of rectum (principal); C77.2 Secondary and unspecified malignant neoplasm of intra-abdominal lymph nodes; R91.1 Solitary pulmonary nodule; R22.42 Localized swelling, mass and lump, left lower limb | CPT/HCPCS: 36415 ==

== ENCOUNTER → 2025-04-24 11:50 | Outpatient (REF) | payer MEDICARE, OTHER, SELFPAY ==
[2025-04-24 12:48] LABS: Hematocrit 41.1 % (39.0-52.0); Hemoglobin 13.5 g/dL (13.0-18.0); Mean Corp Hgb Conc. 32.8 g/dL (33.0-37.0); Mean Corpuscular Volume 93.6 fL (80.0-94.0); Nucleated Red Blood Cells % 0 % (-); Platelet Count 192 10^3/uL (130-400); Red Cell Dist. Width 13.1 % (11.5-14.5)
[2025-04-24 13:21] LABS: ALT (SGPT) 32 U/L (0-50); AST (SGOT) 27 U/L (17-59); Albumin 4.2 g/dl (3.5-5.0); Alkaline Phosphatase 82 U/L (38-126); Blood Urea Nitrogen 18 mg/dl (9-20); Calcium 9.4 mg/dl (8.4-10.2); Carbon Dioxide 29 mmol/L (22-30); Chloride 103 mmol/L (98-107); Glucose 101 mg/dl (70-99); Potassium 4.6 mmol/L (3.5-5.1); Sodium 138 mmol/L (135-145); Total Protein 7.1 g/dl (6.3-8.2); eGFR > 60.00
== END ==
LOC: REG 11:50
PROVIDERS: ATTENDING PHYSICIAN Internal Medicine Hematology & Oncology; FAMILY PHYSICIAN Internal Medicine
DX: C20 Malignant neoplasm of rectum (principal); C77.2 Secondary and unspecified malignant neoplasm of intra-abdominal lymph nodes; R91.1 Solitary pulmonary nodule; R22.42 Localized swelling, mass and lump, left lower limb
CPT/HCPCS: 36415; 80053; 82570; 84156; 85025

== ENCOUNTER 2025-04-26 06:18 | Emergency (ER) | payer MEDICARE, OTHER, SELFPAY ==
[2025-04-26 06:41] VITALS: BP 132/74
[2025-04-26 07:44] VITALS: BMI 26.2
[2025-04-26 08:00] VITALS: BP 105/70
--- NOTE | 2025-04-26 08:02 | ED.GENMED ---
History of Present Illness
General
Chief Complaint: Rectal Bleeding
Source: patient and spouse
Exam Limitations: none
Time Seen by Provider: 04/26/25 06:49
History of Present Illness
History of Present Illness:
75-year-old male complaining of diarrhea and 1 episode of rectal bleeding. On chemotherapy for colorectal cancer. Had his second treatment done yesterday. Started with diarrhea last night. 2 episodes of diarrhea. Third episode had some bright
red blood. Patient denies other symptoms at this time denying fever chills abdominal pain or other complaints. No thinners.
Past History
Past History
ED Past Medical History: Cancer (Colorectal cancer)
ED Past Surgical History: Other (Bilateral cataract surgery)
Social History
Tobacco: Non-smoker
Review of Systems
Review of Systems
All Other Systems: Not applicable
Constitutional: Denies fever or chills
ABD/GI: Denies abdominal pain or black stools
Phy Exam
Physical Exam
Physical Exam:
GENERAL: Alert and oriented in no apparent distress
EYE: Orbits normal.
NECK: Supple
CARDIAC: Regular rate and rhythm without any obvious murmurs. Port left upper chest wall
LUNGS: Clear breath sounds,normal
ABDOMEN: Soft, without focal tenderness or distention. Rectal exam with a minuscule amount of bright red blood. No severe blood no melena.
NEUROLOGICAL: Alert and oriented , grossly non-focal
SKIN: Warm and dry, no rash or lesion, no discoloration, skin intact.
MUSCULOSKELETAL: No edema,no deformity.Good color
PSYCH: Normal and appropriate interaction.
Course
Orders/Labs/Results
Orders:
Orders
04/26/25 06:51
IV Insert/Care/Rem.- Treatment PRN
04/26/25 07:42
Type+Screen Urgent
Complete Blood Count/With Diff Urgent
Comprehensive Metabolic Panel Urgent
Abnormal Lab Results
04/26/25
07:42
WBC 11.8 H 10^3/uL
(4.8-10.8)
RBC 4.23 L 10^6/uL
(4.70-6.10)
Hgb 12.9 L g/dL
(13.0-18.0)
Hct 38.9 L %
(39.0-52.0)
Absolute Neuts (auto) 10.9 H 10^3/uL
(1.4-6.5)
Absolute Lymphs (auto) 0.4 L 10^3/uL
(1.2-3.4)
Neutrophils % 92.8 H %
(42.2-75.2)
Lymphocytes % 3.0 L %
(20.5-51.1)
Sodium 134 L mmol/L
(135-145)
Glucose 146 H mg/dl
(70-99)
04/26/25 07:42
04/26/25 07:42
Vital Signs
Initial and Last Documented VS:
Initial Vital Signs
Temp Pulse Resp BP Pulse Ox
97.8 F 67 20 132/74 98
04/26/25 06:41 04/26/25 06:41 04/26/25 06:41 04/26/25 06:41 04/26/25 06:41
Last Documented Vital Signs
Temp Pulse Resp BP Pulse Ox
97.8 F 73 9 111/72 97
04/26/25 06:41 04/26/25 11:00 04/26/25 11:00 04/26/25 11:00 04/26/25 11:00
MDM/Problems Addressed
Differential Diagnosis Includes:
Patient with 1 episode of bright red rectal bleeding after diarrhea. Diarrhea likely secondary to chemo. Clinically very stable. No severe bleeding at this time. Patient did have radiation to this area previously. Suspect secondary to
radiation/diarrhea. Check labs and discussed with heme-onc
*Pulse Oximetry
SaO2: 99
Oxygen Mode of Delivery: Room air
Patient hypoxic: no (98)
*Critical Care Note
Total Time (30-74mins, 75-104mins- exclusive of procedures): Not Applicable
Data Reviewed
Review of Other/Old Records Reveals: Labs, Records and Radiology Studies
Update Note
Update Note:
0900... Patient has had no further episodes of rectal bleeding. He is clinically stable and nontoxic. Discussed options of observation at home versus admission observation versus another 2 or 3-hours of observation in the emergency department. We
have elected for option 3. Reviewed with patient's oncologist. If he has no further bleeding we will discharge him to follow-up. If he does have further bleeding he will be admitted for further observation and care
1200... No further bleeding. Medically stable. Asymptomatic. Reviewed with oncology. Discharged to follow-up
ED Attending Note
-
Portions of this chart may have been created with voice recognition software.� Occasional wrong word or��sound alike� substitutions may have occurred due to the inherent limitations of voice recognition software.
Discharge Plan
Departure
Patient Disposition: Home (Routine Discharge)
Date of Disposition: 04/26/25
Time of Disposition: 12:00
Patient with high blood pressure during this ER visit?: No
Discharge Problem:
Diarrhea/rectal bleeding, Chemotherapy, Rectal CA history
Instructions: Gastrointestinal Bleeding (DC), Acute Diarrhea
Prescriptions:
No Action
lisinopril 20 mg Tablet
20 mg PO HS
Referrals:
Yvonne Baron DO [Family Provider, Family Practice] - Follow up in 2-3 days
Activity Restrictions/Additional Instructions:
Review further chemotherapy with your oncologist
Return immediately with recurrent episodes of gastrointestinal bleeding, pain fever or any other concerning symptoms
Interventions
Interventions:
*Risk Screen - Suicide Last Done: 04/26/25 06:41
*General Assessment Last Done: 04/26/25 06:41
*Neglect/Abuse Screening Last Done: 04/26/25 06:41
*ED- Fall Risk Assessment Last Done: 04/26/25 06:41
*ED COVID-19 Vaccine History Last Done: 04/26/25 06:41
*ED Influenza Vaccine History Last Done: 04/26/25 06:41
ID-Cvlfhl-Foyvskkkcg Assessment Last Done: 04/26/25 07:45
ED- Cardiac Assessment Last Done: 04/26/25 07:45
ED- Pulmonary Assessment Last Done: 04/26/25 07:45
Discharge Date and Time
Print Language: IRISH
[2025-04-26 08:03] LABS: Hematocrit 38.9 % (39.0-52.0); Hemoglobin 12.9 g/dL (13.0-18.0); Mean Corp Hgb Conc. 33.2 g/dL (33.0-37.0); Mean Corpuscular Volume 92.0 fL (80.0-94.0); Nucleated Red Blood Cells % 0 % (-); Platelet Count 178 10^3/uL (130-400); Red Cell Dist. Width 13.1 % (11.5-14.5)
[2025-04-26 08:37] LABS: AST (SGOT) 44 U/L (17-59); Albumin 4.2 g/dl (3.5-5.0); Alkaline Phosphatase 79 U/L (38-126); Blood Urea Nitrogen 20 mg/dl (9-20); Calcium 9.5 mg/dl (8.4-10.2); Carbon Dioxide 26 mmol/L (22-30); Chloride 100 mmol/L (98-107); Estimated Creatinine Clearance 67 ml/min; Glucose 146 mg/dl (70-99); Potassium 3.8 mmol/L (3.5-5.1); Sodium 134 mmol/L (135-145); Total Protein 7.1 g/dl (6.3-8.2); eGFR > 60.00
[2025-04-26 08:52] LABS: ALT (SGPT) 49 U/L (0-50)
[2025-04-26 09:00] VITALS: BP 118/70
[2025-04-26 10:00] VITALS: BP 113/68
[2025-04-26 11:00] VITALS: BP 111/72
== END 2025-04-26 12:19 | disposition home or self-care (01) ==
LOC: EMR 06:18
PROVIDERS: EMERGENCY PHYSICIAN Emergency Medicine; FAMILY PHYSICIAN Internal Medicine
DX: R19.7 Diarrhea, unspecified (principal); K62.5 Hemorrhage of anus and rectum; C18.9 Malignant neoplasm of colon, unspecified
CPT/HCPCS: 99283; 80053; 85025; 86850; 86900; 86901

== ENCOUNTER 2025-04-30 02:06 | Emergency (ER) | payer MEDICARE, OTHER, SELFPAY ==
[2025-04-30 02:15] VITALS: BP 153/92
[2025-04-30 02:19] VITALS: BMI 27.3
[2025-04-30 03:55] LABS: Hematocrit 35.0 % (39.0-52.0); Hemoglobin 11.8 g/dL (13.0-18.0); Mean Corp Hgb Conc. 33.7 g/dL (33.0-37.0); Mean Corpuscular Volume 91.1 fL (80.0-94.0); Red Cell Dist. Width 12.3 % (11.5-14.5)
[2025-04-30 04:12] LABS: ALT (SGPT) 32 U/L (0-50); AST (SGOT) 28 U/L (17-59); Albumin 3.9 g/dl (3.5-5.0); Alkaline Phosphatase 128 U/L (38-126); Blood Urea Nitrogen 14 mg/dl (9-20); Calcium 8.4 mg/dl (8.4-10.2); Carbon Dioxide 25 mmol/L (22-30); Chloride 101 mmol/L (98-107); Estimated Creatinine Clearance 86 ml/min; Glucose 149 mg/dl (70-99); Lipase 148 U/L (23-300); Sodium 132 mmol/L (135-145); Total Protein 6.7 g/dl (6.3-8.2); eGFR > 60.00
[2025-04-30 04:17] LABS: Troponin I < 0.012 ng/ml
[2025-04-30 04:18] LABS: Potassium 3.7 mmol/L (3.5-5.1)
[2025-04-30] MEDS: NSS 1000 IV (04:24)
[2025-04-30] MEDS: MORPHINE SULFATE 4 MG IV (04:25)
[2025-04-30 04:27] VITALS: BP 145/80
[2025-04-30 04:29] LABS: Absolute Neutrophils -Man Diff 13.4 10^3/uL (1.4-6.5); Platelet Count 84 10^3/uL (130-400)
[2025-04-30 04:30] LABS: Normal RBC Morphology Yes; Platelets Checked Yes; Total Cells Counted 100
[2025-04-30 04:48] LABS: Urine Character Clear (Clear)
[2025-04-30 05:00] VITALS: BP 132/78
--- NOTE | 2025-04-30 05:21 | ED.GENMED ---
History of Present Illness
General
Chief Complaint: Abdominal Pain
Source: patient and spouse
Time Seen by Provider: 04/30/25 02:41
History of Present Illness
History of Present Illness:
The patient is a 75-year-old male undergoing treatment for colon cancer, with lung metastasis. He recently started a new chemotherapy regimen on Thursday, he received an infusion, which was interrupted later that day due to onset of diarrhea. On
Thursday, the patient presented to this ED with continued diarrhea, which has been followed by constipation since . He reports no bowel movement since . The patient has been experiencing abdominal pain that started on Thursday
morning, around 24 hours ago. The patient also reports intermittent spasms in the upper abdomen and no noticeable blood in the stool since the initial episode of blood-tinged diarrhea. He has lost some appetite but states he regained it this
morning, and the pain is not exacerbated by eating or drinking. The patient denies nausea or fever. His colon cancer, diagnosed in September 2023, has also metastasized to his lungs.
Abdominal pain is primarily right upper quadrant, worse with deep breath. He denies cough no shortness of breath. He denies back nor flank pain. He has not had a fever.
His new chemotherapy consists of Bevacizumab and Camptosar.
Past History
Past History
ED Past Medical History: Cancer (Colorectal cancer, metastatic to lungs) and HTN
ED Past Surgical History: Other (Bilateral cataract surgery)
Social History
Tobacco: Non-smoker
Alcohol: None
Personal:
Living: with family
Employment: Retired
Family History
Family History: Other (Noncontributory)
Phy Exam
Physical Exam
Physical Exam:
GENERAL: 75-year-old gentleman appears his stated age, awake and alert, pleasant, appears in mild to moderate distress related to pain. is accompanying.
EYE: pupils equal and reactive. anicteric
NECK: Supple, nontender, no meningismus, no significant adenopathy.
ENT: oral mucosa is moist. No rhinorrhea.
CARDIAC: Regular rate and rhythm. no murmur. No palpable chest wall tenderness. Port-A-Cath palpable left upper chest wall.
LUNGS: No acute respiratory distress. Moderate splinting with deep breath. Decreased breath sounds at bases otherwise clear to auscultation.
ABDOMEN: Soft, nondistended, mild tenderness right upper quadrant with deep palpation only, no r/g, no cvat. normoactive BS.
NEUROLOGICAL: Alert and oriented x3, no focal neuro deficits.
SKIN: Warm and dry, normal color, skin intact. No rash.
MUSCULOSKELETAL: No C/C/E. peripheral pulses are full and equal b/l. No palpable tenderness.
PSYCH: Normal and appropriate interaction.
Course
Orders/Labs/Results
Orders:
Orders
04/30/25 03:01
Electrocardiogram (*1) Urgent
Reason for Study: Abdominal Pain
EKG- Treatment ONCE
04/30/25 03:20
Complete Blood Count/With Diff Urgent
Comprehensive Metabolic Panel Urgent
Lipase Urgent
Manual Differential Urgent
Troponin I Urgent
04/30/25 03:41
0.9% Sodium Chloride 1000 ml [Nss] 1,000 ml IV BOLUS
Morphine Sulfate 4 mg IV NOW STA
04/30/25 04:34
Urinalysis Reflex To Culture Urgent
Date Specimen was Collected: 04/30/25
Time Specimen was Collected: 04:22
Urine Microscopic Reflex Cult Urgent
04/30/25 05:20
CT Pe/abd/pel W Urgent
Reason For Exam: acute RUQ, R chest pluritic pain
04/30/25 07:01
Mag Hydrox/Al Hydrox/Simeth [Maalox] 30 ml Phenobarb/Hyoscy/Atropine/Scop [] 10 ml Viscous Lidocaine 2% [Xylocaine Viscous Cup] 10 ml PO NOW
04/30/25 07:03
Mag Hydrox/Al Hydrox/Simeth [Maalox] 30 ml .ROUTE .STK-MED ONE
Phenobarb/Hyoscy/Atropine/Scop [] 10 ml .ROUTE .STK-MED ONE
Viscous Lidocaine 2% [Xylocaine Viscous Cup] 15 ml .ROUTE .STK-MED ONE
04/30/25 07:43
Pantoprazole [Protonix IV] 40 mg IV NOW STA
Sucralfate Suspension [Carafate Suspension] 1 gm PO NOW STA
Abnormal Lab Results
04/30/25 04/30/25
03:20 04:34
WBC 14.2 H 10^3/uL
(4.8-10.8)
RBC 3.84 L 10^6/uL
(4.70-6.10)
Hgb 11.8 L g/dL
(13.0-18.0)
Hct 35.0 L %
(39.0-52.0)
Plt Count 84 L D 10^3/uL
(130-400)
Abs Neuts (Manual) 13.4 H 10^3/uL
(1.4-6.5)
Segmented Neutrophils 85 H %
(42-75)
Band Neutrophils 10 H %
(0-3)
Lymphocytes (Manual) 3 L %
(20-51)
Sodium 132 L mmol/L
(135-145)
Creatinine 0.6 L mg/dL
(0.7-1.3)
Glucose 149 H mg/dl
(70-99)
Alkaline Phosphatase 128 H U/L
(38-126)
Ur Occult Blood Reflex 2+ A
(Negative)
Urine Urobilinogen 3+ A
(Neg - 1+)
Urine RBC 11-15 A /HPF
(0-2)
Urine Albumin (Reflex) 1+ A
(Neg - Trace)
04/30/25 03:20
04/30/25 03:20
Vital Signs
Initial and Last Documented VS:
Initial Vital Signs
Temp Pulse Resp Pulse Ox
98 F 89 12 100
04/30/25 02:09 04/30/25 02:09 04/30/25 02:09 04/30/25 02:09
Last Documented Vital Signs
Temp Pulse Resp BP Pulse Ox
98 F 95 33 149/83 100
04/30/25 02:09 04/30/25 07:11 04/30/25 07:11 04/30/25 07:11 04/30/25 05:22
MDM/Problems Addressed
Differential Diagnosis Includes:
The Differential Diagnosis includes, in no particular order and is not limited to:
1. Chemotherapy-induced colitis
2. Small bowel obstruction
3. Metastatic cancer progression
4. Infection (e.g., Clostridium difficile)
5. Partial bowel obstruction due to tumor
6. Gastrointestinal bleed
7. Peptic ulcer disease
8. Gastroparesis
9. Hepatobiliary dysfunction
10. Side effects from chemotherapy or medication such as loperamide.
11. Pneumonia
12. PE
MDM/Problems Addressed:
Acute upper abdominal pain, initial diarrhea now reports constipation
Patient appears moderately uncomfortable, significant pleuritic nature to right upper quadrant pain thus must consider a primarily pulmonary issue such as pleurisy, PE, pneumonia, progression of pulmonary metastatic disease, less likely ACS/VT.
Must consider intra-abdominal pathology such as cholecystitis, pancreatitis, constipation, bowel obstruction, hepatic metastasis, hepatitis, colitis, pyelonephritis, kidney stone.
Labs are pending.
Will initiate IV fluids and medicate for pain.
Will check EKG and troponin.
Will plan for CT abdomen pelvis and consider chest x-ray versus CT of the chest/PE study.
Chronic conditions affecting care: HTN and Cancer
*Radiology
Radiology exam reviewed: radiology read reviewed
*Pulse Oximetry
SaO2: 100
Oxygen Mode of Delivery: Room air
Patient hypoxic: no
*EKG
Interpreted by ED Provider?: Yes
Interpretation: normal
Comparison EKG: no changes (Unchanged from previous save for PAC's are new)
Rate: normal
Rhythm: sinus and PAC's
[place]: normal axis
Interval: normal interval
QRS Pattern: normal QRS
Ischemia: no ischemia
*Product Assembler Interpretation
Rate: normal
Interpretation: normal
Rhythm: sinus
*Critical Care Note
Total Time (30-74mins, 75-104mins- exclusive of procedures): Not Applicable
Update Note
Update Note:
CTs chest abdomen pelvis negative for PE, no infiltrate. Bilateral pulmonary nodules appear slightly larger compared to previous.
CT abdomen pelvis essentially unremarkable but there is note of some fluid within the distal esophagus.
No bowel obstruction. No constipation. No hydronephrosis.
Patient continues to have no significant right upper quadrant tenderness to palpation.
Labs show mildly elevated white blood cell count. Patient recently received a Neupogen injection. He remains afebrile. Chemistries essentially unremarkable. Troponins negative.
Concern for an element of acid reflux causing pleuritic type right upper quadrant pain thus will trial a GI cocktail.
Other consideration is pleuritic pain related to metastatic lung disease.
07:40
Patient reports mild to moderate improvement in right upper quadrant pain after GI cocktail.
I do suspect an element of GERD
He recently began Prilosec 20 mg daily. Recommend he increase this to 40 mg daily and will add a short course of as needed Carafate.
Prompt follow-up with oncologist for recheck.
Return precautions discussed.
ED Attending Note
-
Portions of this chart may have been created with voice recognition software.� Occasional wrong word or��sound alike� substitutions may have occurred due to the inherent limitations of voice recognition software.
Discharge Plan
Departure
Patient Disposition: Home (Routine Discharge)
Date of Disposition: 04/30/25
Time of Disposition: 07:55
Patient with high blood pressure during this ER visit?: No
Condition: Good
Discharge Problem:
Pleuritic right chest pain, Gastro-esophageal reflux disease with esophagitis
Instructions: Acid Reflux and GERD in Adults (DC)
Prescriptions:
New
sucralfate 100 mg/mL suspension
1 g PO QIDPRN PRN (Reason: upper abd pain/chest pain) Qty: 500 0RF
No Action
lisinopril 20 mg Tablet
20 mg PO HS
Referrals:
Desirae Haynes MD [Active, Hematology / Oncology] - Next open appointment
Yvonne Baron DO [Family Provider, Family Practice]
Activity Restrictions/Additional Instructions:
Continue Prilosec, increasing to 40 mg daily.
Maintain a bland diet, avoid caffeine, spicy or fried foods.
You have been prescribed animal behaviorist fate to take 2 teaspoons 4 times daily as needed for chest discomfort/right upper quadrant discomfort.
Call Dr. Munguia's office tomorrow for prompt reevaluation.
Interventions
Interventions:
*Risk Screen - Suicide Last Done: 04/30/25 02:17
*General Assessment Last Done: 04/30/25 02:17
*Neglect/Abuse Screening Last Done: 04/30/25 02:17
*ED- Fall Risk Assessment Last Done: 04/30/25 02:17
*ED COVID-19 Vaccine History Last Done: 04/30/25 02:17
*ED Influenza Vaccine History Last Done: 04/30/25 02:17
AK-Vfnseh-Fmmsgnyikd Assessment Last Done: 04/30/25 02:20
Discharge Date and Time
Print Language: SERBIAN
[2025-04-30 05:54] LABS: Urine White Cell None Seen /HPF (0-5)
[2025-04-30] MEDS: MAALOX 50 PO (07:06)
[2025-04-30 07:11] VITALS: BP 149/83
[2025-04-30] MEDS: CARAFATE SUSPENSION 1 GM PO (07:54)
[2025-04-30] MEDS: PROTONIX IV 40 MG IV (07:54)
[2025-04-30 08:00] VITALS: BP 150/78
== END 2025-04-30 09:03 | disposition home or self-care (01) ==
LOC: EMR 02:06
PROVIDERS: EMERGENCY PHYSICIAN Emergency Medicine; FAMILY PHYSICIAN Internal Medicine
DX: R07.89 Other chest pain (principal); K21.00 Gastro-esophageal reflux disease with esophagitis, without bleeding; C18.9 Malignant neoplasm of colon, unspecified; C78.01 Secondary malignant neoplasm of right lung; C78.02 Secondary malignant neoplasm of left lung; I10 Essential (primary) hypertension; Z79.60 Long term (current) use of unspecified immunomodulators and immunosuppressants
CPT/HCPCS: 96374; 96375; 96361; 99284; 71275; 74177; 80053; 81003; 81015; 83690; 84484; 85025; 93005; Q9967

== ENCOUNTER 2025-05-03 19:30 | Inpatient (IN) | payer MEDICARE, OTHER, SELFPAY ==
[2025-05-03 13:02] VITALS: BP 97/60
--- NOTE | 2025-05-03 15:53 | ED.GENMED ---
History of Present Illness
<Rebekah Santiago PA-C - Last Filed: 05/03/25 21:39>
General
Chief Complaint: Abdominal Symptoms
Source: patient, records and family
Exam Limitations: none
Time Seen by Provider: 05/03/25 15:31
History of Present Illness
History of Present Illness:
75yoM with a history of metastatic rectal cancer with pulmonary metastases on chemotherapy presenting with his and son for evaluation of vomiting. Ths is patient's 3rd ED visit in the past week for GI symptoms. He started a new chemotherapy
regimen 8 days ago. He reports nausea, vomiting, and diarrhea. He is not eating solid foods due to lack of appetite and is losing weight. He is also having hiccups. He has been taking baclofen and Carafate without any relief of this. He had a
fever of 102 last night but has not had any fevers today. He spoke with his colorectal surgery team today and was sent to the ED for hydration and admission. CT scan 3 days ago showed slight progression of pulmonary metastases and retroperitoneal
lymphadenopathy.
Past History
<Rebekah Santiago PA-C - Last Filed: 05/03/25 21:39>
Past History
ED Past Medical History: Cancer (Colorectal cancer, metastatic to lungs) and HTN
ED Past Surgical History: Other (Bilateral cataract surgery)
Social History
Tobacco: Non-smoker
Alcohol: None
Personal:
Living: with family
Employment: Retired
Family History
Family History: Other (Noncontributory)
Phy Exam
<Rebekah Santiago PA-C - Last Filed: 05/03/25 21:39>
General Physical Exam
General Presentation: well appearing and no apparent distress
General Skin: warm and dry
General Habitus: normal
General Mental: alert
ENT Exam
ENT Exam: normocephalic
Cardiovascular Exam
Cardiovascular Exam: regular rate/rhythm
Pulmonary Exam
Pulmonary Exam: lungs clear, no respiratory distress, no rales, no crackles and no rhonchi
Gastrointestinal Exam
Gastrointestinal Exam: non tender, soft and non distended
Neurological Exam
Neurological Exam: alert
Glenda Coma Scale
Eye Opening: Spontaneous
Verbal Response: Oriented
Motor Response: Obeys Commands
GCS Total Score: 15
Skin Exam
Skin Exam: normal color and warm/dry
Psychiatric Exam
Psychiatric Exam: normal mood/affect
Course
<Rebekah Santiago PA-C - Last Filed: 05/03/25 21:39>
Orders/Labs/Results
Orders:
Orders
05/03/25 Breakfast
Clear Liquid
05/03/25 15:51
0.9% Sodium Chloride 1000 ml [Nss] 1,000 ml IV BOLUS
05/03/25 15:55
Famotidine [Pepcid] 20 mg IV NOW STA
Pantoprazole [Protonix IV] 40 mg IV NOW STA
05/03/25 16:25
Complete Blood Count/With Diff Urgent
05/03/25 17:13
Comprehensive Metabolic Panel Urgent
Direct Bilirubin Urgent
Lipase Urgent
Magnesium Urgent
05/03/25 18:14
Bladder Scan- Treatment ONCE
Potassium Chloride [KCl] 40 meq PO NOW STA
05/03/25 18:26
Osmolality, Random Urine Urgent
Date Specimen was Collected: 05/03/25
Time Specimen was Collected: 18:22
Urinalysis Reflex To Culture Urgent
Date Specimen was Collected: 05/03/25
Time Specimen was Collected: 18:22
Urine Microscopic Reflex Cult Urgent
Urine Sodium Urgent
Date Specimen was Collected: 05/03/25
Time Specimen was Collected: 18:22
Urine Culture Urgent
DG Source: U
Specimen Description:
Date Specimen was Collected: 05/03/25
Time Specimen was Collected: 18:22
05/03/25 18:53
C DIFF [C difficile Antigen & Toxins] Routine
DG Source: Feces/Stool
Specimen Description:
Norovirus by PCR Routine
DG Source: Feces/Stool
Specimen Description:
Ova & Parasites Giardia/Crypto AG [Giardia/Cryptosporidium Ag] Routine
DG Source: Feces/Stool
Specimen Description:
Stool Culture Routine
DG Source: Feces/Stool
Specimen Description:
05/03/25 18:56
EKG [Electrocardiogram (*1)] Stat
Reason for Study: QTc Monitoring
COVID-19 Antigen Routine
Source: Nasal Swab
Influenza A+B Rapid Molecular Routine
DG Source: Nasal Swab
Specimen Description:
05/03/25 18:57
Add On- LAB Routine
Tests Added?: direct bilirubin
05/03/25 18:58
Add On- LAB Routine
Tests Added?: direct bilirubin
05/03/25 19:01
Admit/Transfer Patient As Directed
Co-Sign Provider:
Level of Care: Inpatient admission
Assign to:: Medical/Surgical
Physician / Group: aliyah
Diagnosis: fever
Reason for Hospitalization: fever
Expected length of stay greater than two midnights?: Yes
ELOS- Estimated Length of Stay in days: 3
I certify the patient meets the requirements for IP care: Yes
PRN Pain Medication Management As Directed
May give lesser potent ordered pain med per pt: Yes
preference::
Protocol:: Medication orders for pain may be administered in a
manner that supports deferring to patient preference
when the pt is:
- Requesting an ordered lesser potent pain medication.
Least to most potent pain medications are defined
as: acetaminophen < NSAID < tramadol < opioids
(morphine, oxycodone, hydromorphone).
- Requesting a lesser dose of the same medication IF
ORDERED.
- Requesting a less intrusive route of administration
if both routes are prescribed by the provider (PO <
IV).
CR Chest - 2 Views Stat
Comment:
Reason For Exam: cough
05/03/25 19:02
Code Status As Directed
Resuscitation Status: Full Code
05/03/25 19:14
Prochlorperazine [Compazine] 5 mg IV NOW STA
05/03/25 19:22
Lactate Level [Lactic Acid] Urgent
05/03/25 19:23
Blood Culture Q30M
DG Source: Blood/Venous
Specimen Description:
Blood Culture Q30M
DG Source: Blood/Venous
Specimen Description:
05/03/25 20:31
0.9% Sodium Chloride 1000 ml [Nss] 1,000 ml IV 70 mls/hr
Acetaminophen [Tylenol] 650 mg PO Q4HPRN PRN
Prochlorperazine [Compazine] 5 mg IV Q6HPRN PRN
05/03/25 20:31
Activity As Directed
Activity Level: As Tolerated
Pneumatic Compression Sleeves As Directed
Type: Knee high
Vital Signs As Directed
Frequency: Per unit guidelines
DX Deep Vein Thrombosis Video Routine
05/04/25 00:00
BMP [Basic Metabolic Panel] Stat
05/04/25 06:00
Basic Metabolic Panel IN AM
Complete Blood Count/No Diff IN AM
05/04/25 08:00
Pantoprazole [Protonix IV] 40 mg IV DAILY
05/05/25 06:00
Basic Metabolic Panel IN AM
Complete Blood Count/No Diff IN AM
05/06/25 06:00
Basic Metabolic Panel IN AM
Complete Blood Count/No Diff IN AM
05/07/25 06:00
Basic Metabolic Panel IN AM
Complete Blood Count/No Diff IN AM
Abnormal Lab Results
05/03/25 05/03/25 05/03/25
16:25 17:13 18:26
WBC 2.3 L* 10^3/uL
(4.8-10.8)
RBC 3.74 L 10^6/uL
(4.70-6.10)
Hgb 11.5 L g/dL
(13.0-18.0)
Hct 32.1 L %
(39.0-52.0)
Plt Count 34 L D 10^3/uL
(130-400)
MPV 12.5 H fL
(7.4-10.4)
Abs Immat Gran (auto) 0.1 H 10^3/uL
(0-0.05)
Absolute Lymphs (auto) 0.2 L 10^3/uL
(1.2-3.4)
Immature Gran % 3.5 H %
(0-0.5)
Neutrophils % 78.8 H %
(42.2-75.2)
Lymphocytes % 7.8 L %
(20.5-51.1)
Basophils % 2.6 H %
(0-2)
Sodium 121 L mmol/L
(135-145)
Potassium 3.4 L mmol/L
(3.5-5.1)
Chloride 91 L mmol/L
(98-107)
BUN 55 H mg/dl
(9-20)
Creatinine 2.9 H mg/dL
(0.7-1.3)
Calcium 7.8 L mg/dl
(8.4-10.2)
Total Bilirubin 4.3 H mg/dl
(0.2-1.3)
Direct Bilirubin 3.4 H mg/dl
(0.0-0.4)
ALT 54 H U/L
(0-50)
Total Protein 5.0 L g/dl
(6.3-8.2)
Albumin 2.5 L g/dl
(3.5-5.0)
Ur Occult Blood Reflex 3+ A
(Negative)
Urine Bilirubin 2+ A
(Negative)
Leukocyte Esterase Rfl 1+ A
(Negative)
Urine RBC 3-6 A /HPF
(0-2)
Urine WBC (Reflex) 11-15 A /HPF
(0-5)
Urine Bacteria (Reflex) Moderate A
(Negative)
Urine Osmolality 250 L mOsm/kg
(300-900)
Urine Sodium 10 L mmol/L
(30-90)
Urine Albumin (Reflex) 2+ A
(Neg - Trace)
05/03/25 16:25
05/03/25 17:13
Vital Signs
Initial and Last Documented VS:
Initial Vital Signs
Temp Pulse Resp BP Pulse Ox
97.5 F 76 16 97/60 98
05/03/25 13:02 05/03/25 13:02 05/03/25 13:02 05/03/25 13:02 05/03/25 13:02
Last Documented Vital Signs
Temp Pulse Resp BP Pulse Ox
98.9 F 111 18 103/69 96
05/03/25 20:53 05/03/25 20:53 05/03/25 20:53 05/03/25 20:53 05/03/25 20:53
Lissettlt;Lizbeth Galvin, DO - Last Filed: 05/03/25 19:38>
Orders/Labs/Results
Orders:
Orders
05/03/25 Breakfast
Clear Liquid
05/03/25 15:51
0.9% Sodium Chloride 1000 ml [Nss] 1,000 ml IV BOLUS
05/03/25 15:55
Famotidine [Pepcid] 20 mg IV NOW STA
Pantoprazole [Protonix IV] 40 mg IV NOW STA
05/03/25 16:25
Complete Blood Count/With Diff Urgent
05/03/25 17:13
Comprehensive Metabolic Panel Urgent
Direct Bilirubin Urgent
Lipase Urgent
Magnesium Urgent
05/03/25 18:14
Bladder Scan- Treatment ONCE
Potassium Chloride [KCl] 40 meq PO NOW STA
05/03/25 18:26
Osmolality, Random Urine Urgent
Date Specimen was Collected: 05/03/25
Time Specimen was Collected: 18:22
Urinalysis Reflex To Culture Urgent
Date Specimen was Collected: 05/03/25
Time Specimen was Collected: 18:22
Urine Microscopic Reflex Cult Urgent
Urine Sodium Urgent
Date Specimen was Collected: 05/03/25
Time Specimen was Collected: 18:22
Urine Culture Urgent
DG Source: U
Specimen Description:
Date Specimen was Collected: 05/03/25
Time Specimen was Collected: 18:22
05/03/25 18:53
C DIFF [C difficile Antigen & Toxins] Routine
DG Source: Feces/Stool
Specimen Description:
Norovirus by PCR Routine
DG Source: Feces/Stool
Specimen Description:
Ova & Parasites Giardia/Crypto AG [Giardia/Cryptosporidium Ag] Routine
DG Source: Feces/Stool
Specimen Description:
Stool Culture Routine
DG Source: Feces/Stool
Specimen Description:
05/03/25 18:56
EKG [Electrocardiogram (*1)] Stat
Reason for Study: QTc Monitoring
COVID-19 Antigen Routine
Source: Nasal Swab
Influenza A+B Rapid Molecular Routine
DG Source: Nasal Swab
Specimen Description:
05/03/25 18:57
Add On- LAB Routine
Tests Added?: direct bilirubin
05/03/25 18:58
Add On- LAB Routine
Tests Added?: direct bilirubin
05/03/25 19:01
Admit/Transfer Patient As Directed
Co-Sign Provider:
Level of Care: Inpatient admission
Assign to:: Medical/Surgical
Physician / Group: ly
Diagnosis: fever
Reason for Hospitalization: fever
Expected length of stay greater than two midnights?: Yes
ELOS- Estimated Length of Stay in days: 3
I certify the patient meets the requirements for IP care: Yes
PRN Pain Medication Management As Directed
May give lesser potent ordered pain med per pt: Yes
preference::
Protocol:: Medication orders for pain may be administered in a
manner that supports deferring to patient preference
when the pt is:
- Requesting an ordered lesser potent pain medication.
Least to most potent pain medications are defined
as: acetaminophen < NSAID < tramadol < opioids
(morphine, oxycodone, hydromorphone).
- Requesting a lesser dose of the same medication IF
ORDERED.
- Requesting a less intrusive route of administration
if both routes are prescribed by the provider (PO <
IV).
CR Chest - 2 Views Stat
Comment:
Reason For Exam: cough
05/03/25 19:02
Code Status As Directed
Resuscitation Status: Full Code
05/03/25 19:14
Prochlorperazine [Compazine] 5 mg IV NOW STA
05/03/25 19:22
Lactate Level [Lactic Acid] Urgent
05/03/25 19:23
Blood Culture Q30M
DG Source: Blood/Venous
Specimen Description:
Blood Culture Q30M
DG Source: Blood/Venous
Specimen Description:
05/03/25 20:31
0.9% Sodium Chloride 1000 ml [Nss] 1,000 ml IV 70 mls/hr
Acetaminophen [Tylenol] 650 mg PO Q4HPRN PRN
Prochlorperazine [Compazine] 5 mg IV Q6HPRN PRN
05/03/25 20:31
Activity As Directed
Activity Level: As Tolerated
Pneumatic Compression Sleeves As Directed
Type: Knee high
Vital Signs As Directed
Frequency: Per unit guidelines
DX Deep Vein Thrombosis Video Routine
05/04/25 00:00
BMP [Basic Metabolic Panel] Stat
05/04/25 06:00
Basic Metabolic Panel IN AM
Complete Blood Count/No Diff IN AM
05/04/25 08:00
Pantoprazole [Protonix IV] 40 mg IV DAILY
05/05/25 06:00
Basic Metabolic Panel IN AM
Complete Blood Count/No Diff IN AM
05/06/25 06:00
Basic Metabolic Panel IN AM
Complete Blood Count/No Diff IN AM
05/07/25 06:00
Basic Metabolic Panel IN AM
Complete Blood Count/No Diff IN AM
Abnormal Lab Results
05/03/25 05/03/25 05/03/25
16:25 17:13 18:26
WBC 2.3 L* 10^3/uL
(4.8-10.8)
RBC 3.74 L 10^6/uL
(4.70-6.10)
Hgb 11.5 L g/dL
(13.0-18.0)
Hct 32.1 L %
(39.0-52.0)
Plt Count 34 L D 10^3/uL
(130-400)
MPV 12.5 H fL
(7.4-10.4)
Abs Immat Gran (auto) 0.1 H 10^3/uL
(0-0.05)
Absolute Lymphs (auto) 0.2 L 10^3/uL
(1.2-3.4)
Immature Gran % 3.5 H %
(0-0.5)
Neutrophils % 78.8 H %
(42.2-75.2)
Lymphocytes % 7.8 L %
(20.5-51.1)
Basophils % 2.6 H %
(0-2)
Sodium 121 L mmol/L
(135-145)
Potassium 3.4 L mmol/L
(3.5-5.1)
Chloride 91 L mmol/L
(98-107)
BUN 55 H mg/dl
(9-20)
Creatinine 2.9 H mg/dL
(0.7-1.3)
Calcium 7.8 L mg/dl
(8.4-10.2)
Total Bilirubin 4.3 H mg/dl
(0.2-1.3)
Direct Bilirubin 3.4 H mg/dl
(0.0-0.4)
ALT 54 H U/L
(0-50)
Total Protein 5.0 L g/dl
(6.3-8.2)
Albumin 2.5 L g/dl
(3.5-5.0)
Ur Occult Blood Reflex 3+ A
(Negative)
Urine Bilirubin 2+ A
(Negative)
Leukocyte Esterase Rfl 1+ A
(Negative)
Urine RBC 3-6 A /HPF
(0-2)
Urine WBC (Reflex) 11-15 A /HPF
(0-5)
Urine Bacteria (Reflex) Moderate A
(Negative)
Urine Osmolality 250 L mOsm/kg
(300-900)
Urine Sodium 10 L mmol/L
(30-90)
Urine Albumin (Reflex) 2+ A
(Neg - Trace)
05/03/25 16:25
05/03/25 17:13
Vital Signs
Initial and Last Documented VS:
Initial Vital Signs
Temp Pulse Resp BP Pulse Ox
97.5 F 76 16 97/60 98
05/03/25 13:02 05/03/25 13:02 05/03/25 13:02 05/03/25 13:02 05/03/25 13:02
Last Documented Vital Signs
Temp Pulse Resp BP Pulse Ox
98.9 F 111 18 103/69 96
05/03/25 20:53 05/03/25 20:53 05/03/25 20:53 05/03/25 20:53 05/03/25 20:53
<Rebekah Santiago PA-C - Last Filed: 05/03/25 21:39>
MDM/Problems Addressed
Differential Diagnosis Includes:
75yoM here with continued n/v/d and hiccups. Hx of metastatic rectal cancer. Recently started new chemo last week. 3rd ED visit this week for GI symptoms. BP 97/60 on arrival with otherwise stable vitals. Patient is non-toxic appearing. Differential
diagnosis includes but is not limited to: chemotherapy side effects, dehydration, ANAMARIA
Initial ED plan: Check CBC, CMP, and magnesium. 1L NS bolus.
<Rebekah Santiago PA-C - Last Filed: 05/03/25 21:39>
*Pulse Oximetry
SaO2: 98
Oxygen Mode of Delivery: Room air
Patient hypoxic: no
*Critical Care Note
Total Time (30-74mins, 75-104mins- exclusive of procedures): Not Applicable
<Rebekah Santiago PA-C - Last Filed: 05/03/25 21:39>
Update Note
Update Note:
Labs reveal a white count of 2.3 with normal ANC. Platelet count also low at 34. Sodium 121 which is down from 132 at last ED visit 3 days ago. Creatinine 2.9, up from 0.6 at last ED visit. UA pending and bladder scan added. Patient admitted for
further management.
ED Attending Note
<Rebekah Santiago PA-C - Last Filed: 05/03/25 21:39>
-
Portions of this chart may have been created with voice recognition software.� Occasional wrong word or��sound alike� substitutions may have occurred due to the inherent limitations of voice recognition software.
<Lizbeth Galvin DO - Last Filed: 05/03/25 19:38>
ED Attending Note
Patient seen and examined by attending physician: Yes
I performed the substantive portion of visit, reviewed & personally made and approve the management plan that is documented in note by myself or LENY.: Yes
I performed a history and physical exam of patient and discussed management with resident, I reviewed resident's note and agree with documented findings and plan of care.: Yes
ED Attending Note:
75-year-old male referred to the ER by his surgeon, Dr. Pratt, for further evaluation of significant dehydration given inability to tolerate p.o. this week, with multiple episodes of vomiting. Patient reports some mild epigastric discomfort.
Vital signs reviewed, patient is awake, alert, appears no acute distress, sclera anicteric, mucous membranes tacky, abdomen soft with distention, no guarding or rebound, GCS 15. I reviewed all lab results with physician certified dental assistant. IV fluids
administered. Patient was admitted to the hospitalist for further treatment of acute kidney injury with significant dehydration and hyponatremia.
Discharge Plan
Departure
Patient Disposition: Admit
Date of Disposition: 05/03/25
Time of Disposition: 18:23
Presentation/result/management discussed w/ accepting MD/DO: Hospitalist
Discharge Problem:
Nausea, vomiting, and diarrhea, Acute kidney injury, Hyponatremia
Interventions
Interventions:
*Risk Screen - Suicide Last Done: 05/03/25 13:02
*Neglect/Abuse Screening Last Done: 05/03/25 13:02
*Nursing Disposition Last Done: 05/03/25 20:25
OZ-Teempl-Bljhcwxpsc Assessment Last Done: 05/03/25 15:45
Discharge Date and Time
Discharge Date/Time: 05/03/25 20:25
[2025-05-03] MEDS: PROTONIX IV 40 MG IV (16:34)
[2025-05-03] MEDS: NSS 1000 IV ×2 (16:34→21:34)
[2025-05-03] MEDS: PEPCID 20 MG IV (16:36)
[2025-05-03 17:01] LABS: Hematocrit 32.1 % (39.0-52.0); Hemoglobin 11.5 g/dL (13.0-18.0); Mean Corp Hgb Conc. 35.8 g/dL (33.0-37.0); Mean Corpuscular Volume 85.8 fL (80.0-94.0); Platelet Count 34 10^3/uL (130-400); Red Cell Dist. Width 12.6 % (11.5-14.5)
[2025-05-03 17:09] LABS: Nucleated Red Blood Cells % 0 % (-)
[2025-05-03 17:40] VITALS: BP 115/70
[2025-05-03 17:54] LABS: ALT (SGPT) 54 U/L (0-50); AST (SGOT) 33 U/L (17-59); Albumin 2.5 g/dl (3.5-5.0); Alkaline Phosphatase 97 U/L (38-126); Blood Urea Nitrogen 55 mg/dl (9-20); Calcium 7.8 mg/dl (8.4-10.2); Carbon Dioxide 22 mmol/L (22-30); Glucose 99 mg/dl (70-99); Lipase 263 U/L (23-300); Magnesium 2.2 mg/dl (1.6-2.3); Total Protein 5.0 g/dl (6.3-8.2)
[2025-05-03 18:07] LABS: eGFR 21.60
[2025-05-03 18:14] LABS: Chloride 91 mmol/L (98-107); Potassium 3.4 mmol/L (3.5-5.1); Sodium 121 mmol/L (135-145)
--- NOTE | 2025-05-03 18:26 | HPS.HSE ---
Family Physician
-
Family Physician: Yvonne Baron DO
Chief Complaint
-
abdominal pain,n,v,d
History of Present Illness
75yoM with a history of metastatic rectal cancer with pulmonary metastases on chemotherapy, HTN presented to us with n/v and generalized abdominal pain since last . presenting with his and son for evaluation of vomiting. he was having
bloody stool until Thursday but no blood in the stool since then. he is having multiple episodes of loose watery diarrhea. patient stated vomiting after each meal. patient was evaluated in the ER twice since last . patient stated poor
appetite. denied PIERRE, dizzy or syncope. denied congestion, cough, chest pain, sob. denied dysuria or hematuria. he was taking tylenol every 6 hours for fever today.
Admitting for further management
Medical History
Past Medical History
Past Medical History: Reports Other
Additional Past Medical History:
Glaucoma, hypertension, rectal mass, gout, vertigo, Hicks's palsy
Past Surgical History: Reports Other
Additional Past Surgical History:
Cataract surgery
Social History
Tobacco: Non-smoker
Alcohol: None
Drug: None
Personal:
Living: With Family
Family History
Family History: Not pertinent
Allergies / Home Medications
Allergies reflects when Allergies were last updated in [facility].
Home Medications with original date entered in [facility]
Allergy/Medication List:
Allergies
Allergy/AdvReac Type Severity Reaction Status Date / Time
No Known Allergies Allergy Verified 05/03/25 13:02
Home Medications
lisinopril 20 mg tablet 20 mg PO HS Blood Pressure 11/12/23
sucralfate 100 mg/mL oral suspension 1 g (10 mL) PO QIDPRN PRN upper abd pain/chest pain #500 mL 04/30/25
acetaminophen 325 mg tablet (Tylenol) 650 mg PO Q6HPRN PRN mild pain 05/03/25
baclofen 5 mg tablet 5 mg PO Q8HPRN PRN hipcups 05/03/25
bismuth subsalicylate 262 mg chewable tablet (Pepto-Bismol) 2 tab PO DAILYPRN PRN gerd 05/03/25
simethicone 80 mg chewable tablet 80 mg PO DAILYPRN PRN gas pains 05/03/25
Review of Systems
-
Constitutional: Reports No Symptoms
EENT: Reports No Symptoms
Respiratory: Reports No Symptoms
Cardiac: Reports No Symptoms
Abdomen/GI: Reports Abdominal Pain, Nausea, Vomiting and Diarrhea
: Reports No Symptoms
Musculoskeletal: Reports No Symptoms
Skin: Reports No Symptoms
Neurological: Reports No Symptoms
Endocrine: Reports No Symptoms
Hematologic/Lymphatic: Reports No Symptoms
Psych: Reports No Symptoms
Physical Exam
Vital Signs
Vital Signs
Temp Pulse Resp BP Pulse Ox
97.5 F 102 18 115/70 96
05/03/25 13:02 05/03/25 17:40 05/03/25 17:40 05/03/25 17:40 05/03/25 17:40
Physical Exam
General: Well Developed, Well Nourished and No Apparent Distress
HEENT: NormoCephalic, Moist mucous membranes and Atraumatic
Respiratory: Clear
Cardiac: S1/S2 and Regular Rhythm; No Murmur or Rub
GI: Soft, Non Tender, Non Distended and Normal Bowel Sounds; No Organomegaly
Rectal: Deferred by Provider
Musculoskeletal: No Clubbing, No Cyanosis and No Edema
Skin: No Rash
Neuro: AO x 3 and Nonfocal/grossly intact
Psych: Calm
Laboratory Results
-
05/03/25 16:25
05/03/25 17:13
Laboratory Results
Total Bilirubin 4.3 mg/dl (0.2-1.3) H 05/03/25 17:13
AST 33 U/L (17-59) 05/03/25 17:13
ALT 54 U/L (0-50) H 05/03/25 17:13
Alkaline Phosphatase 97 U/L (38-126) 05/03/25 17:13
Lipase 263 U/L (23-300) 05/03/25 17:13
Data Reviewed
-
Lab Data: Labs Reviewed by me
Impression/Plan
-
# Nausea/vomiting/poor appetite
#hxt of colorectal ca juan to lungs on chemo-follow [facility]
-CT abdomen pelvis with No pulmonary embolism or other significant acute abnormality identified in the chest, abdomen or pelvis, as described above.Slightly progressed extensive bilateral pulmonary metastases.Slightly progressed retroperitoneal
lymphadenopathy, likely malignant.
-clear liquid diet, advance as tolerated
-Zofran prn for n/v
-IV PPI
-covid, C diff, stool for ova and parasites, norovirus, stool culture.
-obtain chest x ray
-blood culture sent from ER
# Leukopenia likely from chemo/metastatic colorectal cancer
- WBC 2.3, hemoglobin 11.5, platelets 34
-ctm
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
# Hypokalemia likely from nausea vomiting
# Acute kidney injury likely dehydration
- Obtain serum osmolality, urine sodium and osmolality
- Sodium 121, potassium 3.4 creatinine 2.9
- Patient received normal saline in ER
-oral kcl
-normal saline continued
-monitor BMP
-consider nephro consult if no improvement in NA
#essential HTN
-hold lisinopril due to ANAMARIA
#DVT prophylaxis
-scd
#CODE status
-full code
[2025-05-03] MEDS: KCL 40 MEQ PO (18:39)
--- NOTE | 2025-05-03 18:54 | W.PN.UPDATE ---
Addendum entered and electronically signed by Rosa Solis MD 05/03/25 19:15:
Hypokalemia
-repleted in ER, Mag OK
Hiccups
-trial of IV compazine PRN
-hold Baclofen in setting of ANAMARIA
Original Note:
Update Note
Progress Note Update
This is an addendum to H&P written by ELECTRO WINNING OPERATOR Riana Franklin
I saw and examined the patient.
The ELECTRO WINNING OPERATOR's note was reviewed and I agree with the note.
Comment:
Mr. Daryn Babb is a 75 yo man with hx essential HTN, metastatic rectal cancer with pulmonary metastases on chemotherapy presents with nausea/vomiting/diarrhea over the past several days and report of fever to 102 yesterday evening. He was seen in
the ER on 04/30 for GI upset, vomiting and diarrhea with negative CT work-up and prescription for Carafate for GERD like symptoms.
Triage VS: T 97.5, P 76, RR 16, BP 97/60, SpO2 98%
On exam patient appears fatigued, CV: S1, S2, RRR; lungs clear, abdomen with some mid-epigastric tenderness, no rebound or guarding
LABS: WBC 2.3, Hg 11.5, PLT 34, Na 121, K+ 3.4, BUN 55, Cr 2.9 (was 0.6 04/30/25), T. Bili 4.3, ASt 33, ALT 54, Lipase 263
CT PE chest/abdomen/pelvis from 04/30/25
IMPRESSION:
1. No pulmonary embolism or other significant acute abnormality identified in the chest, abdomen or pelvis, as described above.
2. Slightly progressed extensive bilateral pulmonary metastases.
3. Slightly progressed retroperitoneal lymphadenopathy, likely malignant.
Acute Kidney Injury
-pre-renal in setting of GI losses/ sepsis
-s/p 1L IVF in ER
-continue running NS @ 80 - will need to adjust sodium with goal to 131 tomorrow evening
Sepsis likely secondary to GI infection with e/o end organ damage with elevated creatinine
Nausa/vomiting/diarrhea - may be secondary to chemotherapy versus GI infection given new fevers
-blood cultures ordered with lactate
-follow up flu, covid
-follow up UA
-follow up C. Diff, stool cultures, norovirus
-check CXR
Hyponatremia
-hypovolemic hyponatremia in setting of GI fluid losses
-follow up urine studies
-IVF as above
Pancytopenia in setting of malignancy and chemotherapy
-avoid pharm DVT PPx
Essential HTN
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
DVT PPx SCD
FULL CODE
76 minutes spent on patient care
[2025-05-03 19:04] LABS: Urine Character Cloudy (Clear)
[2025-05-03] MEDS: COMPAZINE 5 MG IV (19:27)
[2025-05-03 19:32] LABS: COVID-19 Antigen Negative (Negative)
[2025-05-03 20:53] VITALS: BP 103/69; BMI 27.6
--- NOTE | 2025-05-03 21:21 | PTCARENOTE ---
Abdirahman Babb (son) contact # [phone]
[2025-05-04 01:28] LABS: Blood Urea Nitrogen 60 mg/dl (9-20); Calcium 7.5 mg/dl (8.4-10.2); Carbon Dioxide 22 mmol/L (22-30); Chloride 95 mmol/L (98-107); Estimated Creatinine Clearance 15 ml/min; Glucose 97 mg/dl (70-99); Potassium 3.3 mmol/L (3.5-5.1); Sodium 123 mmol/L (135-145); eGFR 17.24
[2025-05-04 01:52] VITALS: BP 103/59
[2025-05-04] MEDS: KCL 40 MEQ PO (06:43)
--- NOTE | 2025-05-04 07:43 | W.PN.HOSP.TC ---
Today's Communication/Plan
-
Cont IVF support
diet advanced to Full Liquid diet, ok to advance to Low residue if tolerating
Nephro and Oncology eval requested
monitor and replete electrolytes as necessary
Assessment / Plan
Assessment / Plan
Physical Exam
General: No acute distress, appears comfortable at this time.
HEENT: NormoCephalic, Moist mucous membranes and Atraumatic
Respiratory: Clear
Cardiac: S1/S2 and Regular Rhythm; No Murmur or Rub
GI: Soft, Non Tender, Non Distended and Normal Bowel Sounds; No Organomegaly
Musculoskeletal: No Clubbing, No Cyanosis and No Edema
Skin: No Rash
Neuro: AO x 3 and Nonfocal/grossly intact
Psych: Calm
# Nausea/vomiting/poor appetite
#hxt of colorectal ca juan to lungs on chemo-[facility]
#noted concern for possible Sepsis on Admission (reports of fever at home, tachycardia, leukopenia)
appears unlikely at this time given overall improvement w/o need for abx
-CT abdomen pelvis with No pulmonary embolism or other significant acute abnormality identified in the chest, abdomen or pelvis, as described above.Slightly progressed extensive bilateral pulmonary metastases.Slightly progressed retroperitoneal
lymphadenopathy, likely malignant.
-clear liquid diet advanced to full liquid, ok to advance to low residue if tolerating.
-compazine prn for n/v
-IV PPI
-covid neg, C diff, stool for ova and parasites, norovirus, stool culture.
-chest x ray appreciated Mild to moderate elevation right hemidiaphragm, no pna
-follow blood cultures
-Abd US appreciated Gallbladder sludge, gallbladder wall top normal in thickness. Likely pericholecystic fluid. Negative sonographic Casas's sign. No findings to suggest biliary tract dilatation.
# Leukopenia/pancytopenia likely from chemo/metastatic colorectal cancer
monitor
Oncology eval requested
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
# Hypokalemia likely from nausea vomiting
# Acute kidney injury likely dehydration, possible recent CT contrast use contributing
-monitor and replete electrolytes as necessary
-IVF support
-monitor BMP
-Nephro eval requested
#essential HTN
-hold lisinopril due to ANAMARIA, bp well controlled w/o so far
#DVT prophylaxis
-scd
#CODE status
-full code
Discussed with patient and patient's family ( and [id number]) at bedside
I spent a total of 50 minutes with the patient or on the floor. More than 50% of this time involved counseling and coordination of care.
Anticipated Discharge: 24 - 48 hours
Subjective/Interval History
-
Date of Service: May 04, 2025
Seen and examined at bedside in no acute distress, resting comfortably in bed. Family ( and [id number]) present during evaluation. Overall reports feeling well, symptoms significantly improved, no diarrhea since yesterday. Hiccups
resolved at this time. Tolerating clear liquid diet.
Objective Data
-
Labs:
Laboratory Results
05/04/25 05/04/25
00:47 07:32
WBC Pending
Hgb Pending
Hct Pending
Plt Count Pending
Sodium 123 L Pending
Potassium 3.3 L Pending
Chloride 95 L Pending
Carbon Dioxide 22 Pending
BUN 60 H Pending
Creatinine 3.5 H Pending
Glucose 97 Pending
Calcium 7.5 L Pending
Vital Signs:
Vital Signs
Temp Pulse Resp BP Pulse Ox
98.3 F 102 20 103/59 96
05/04/25 01:52 05/04/25 01:52 05/04/25 01:52 05/04/25 01:52 05/03/25 20:53
I&O
05/03/25 05/04/25 05/05/25
06:59 06:59 06:59
Intake Total 630 / 630
Output Total 300 / 300
Balance 330 / 330
[2025-05-04 08:14] VITALS: BP 92/48
[2025-05-04] MEDS: NSS (PRESERVATIVE FREE) 10 ML IV (08:18)
[2025-05-04] MEDS: PROTONIX IV 40 MG IV (08:19)
[2025-05-04] MEDS: NSS 1000 IV ×3 (08:20→21:33)
[2025-05-04 08:21] LABS: Blood Urea Nitrogen 66 mg/dl (9-20); Calcium 7.5 mg/dl (8.4-10.2); Carbon Dioxide 21 mmol/L (22-30); Chloride 95 mmol/L (98-107); Glucose 96 mg/dl (70-99); Potassium 3.8 mmol/L (3.5-5.1); Sodium 123 mmol/L (135-145)
[2025-05-04 08:30] LABS: Hematocrit 30.9 % (39.0-52.0); Hemoglobin 10.6 g/dL (13.0-18.0); Mean Corp Hgb Conc. 34.3 g/dL (33.0-37.0); Mean Corpuscular Volume 89.6 fL (80.0-94.0); Platelet Count 42 10^3/uL (130-400); Red Cell Dist. Width 13.2 % (11.5-14.5)
[2025-05-04 09:06] LABS: Estimated Creatinine Clearance 14 ml/min; eGFR 16.13
--- NOTE | 2025-05-04 11:33 | CON.ONC ---
Consultation
-
Date Consultation Requested: 05/04/25
Date Consultation Performed: 05/04/25
Impression
Impression
Nausea/abdominal pain post FOLFIRI bevacizumab administered 04/25
Leukopenia without growth factor support given posttreatment no absolute neutropenia ANC 1.8
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
Acute renal failure likely prerenal azotemia
Plan
Plan
Hydration
Symptomatic therapy with antinausea regime
Monitor renal function
Monitor CBC
Recent bevacizumab monitor for symptoms of perforation
Patient History
History of Present Illness
75yoM with a history of metastatic rectal cancer with pulmonary metastases on chemotherapy, HTN presented to us with n/v and generalized abdominal pain since last . He received FOLFIRI and bevacizumab on 04/25. He presented for persistent
nausea and vomiting. He was having bloody stool until Thursday but no blood in the stool since then. he is having multiple episodes of loose watery diarrhea. patient stated vomiting after each meal. patient was evaluated in the ER twice since last
. patient stated poor appetite. denied PIERRE, dizzy or syncope. denied congestion, cough, chest pain, sob. denied dysuria or hematuria. he was taking tylenol every 6 hours for fever today.
Past-Medical/Surgical History
Past Medical History
Glaucoma, hypertension, rectal mass, gout, vertigo, Hicks's palsy
Past Surgical History:
Cataract surgery
Social History
Tobacco: Non-smoker
Alcohol: None
Drug: None
Personal:
Living: With Family
Family History
Family History: Not pertinent
Patient Medication
�Medication �Instructions �Recorded �Confirmed �Last Taken �Type
lisinopril 20 mg tablet 20 mg PO HS Blood Pressure 11/12/23 05/03/25 05/02/25 History
sucralfate 100 mg/mL oral 1 g (10 mL) PO QIDPRN PRN upper 04/30/25 05/03/25 05/03/25 Rx
suspension abd pain/chest pain #500 mL
acetaminophen 325 mg tablet 650 mg PO Q6HPRN PRN mild pain 05/03/25 05/03/25 05/02/25 History
(Tylenol)
baclofen 5 mg tablet 5 mg PO Q8HPRN PRN hipcups 05/03/25 05/03/25 05/03/25 History
bismuth subsalicylate 262 mg 2 tab PO DAILYPRN PRN gerd 05/03/25 05/03/25 05/03/25 History
chewable tablet (Pepto-Bismol)
simethicone 80 mg chewable tablet 80 mg PO DAILYPRN PRN gas pains 05/03/25 05/03/25 05/03/25 History
Active Medications
Generic Name Dose Route Start Last Admin
Trade Name Freq PRN Reason Stop Dose Admin
Acetaminophen 650 mg 05/03/25 20:31
Acetaminophen 325 Mg Tablet PO 05/31/25 20:30
Q4HPRN PRN
mild pain/PIERRE/temp> 100.4F
Sodium Chloride 1,000 mls @ 100 mls/hr 05/03/25 20:31 05/04/25 10:09
Nss IV 1,000 mls
.Q10H LITTLE Administration
Pantoprazole Sodium 40 mg 05/04/25 08:00 05/04/25 08:19
Pantoprazole Sodium 40 Mg/10 Ml Vial IV 06/01/25 07:59 40 mg
DAILY LITTLE Administration
Prochlorperazine Edisylate 5 mg 05/03/25 20:31
Prochlorperazine 10 Mg/2 Ml Vial IV 05/31/25 20:30
Q6HPRN PRN
n/v
Sodium Chloride 0 flush 05/03/25 21:00
Sodium Chloride 0.9% (Flush) Syringe IV 05/31/25 20:59
PER PROTOCOL LITTLE
Sodium Chloride 10 ml 05/04/25 08:00 05/04/25 08:18
Sodium Chloride 0.9% (Preservative Free) 10 Ml Vial IV 06/01/25 07:59 10 ml
DAILY LITTLE Administration
Review of Systems
-
12 point review of systems fails to elicit additional complaints other than as reviewed in HPI
Physical Exam
-
Physical Exam
General: Well Developed, Well Nourished and No Apparent Distress
HEENT: NormoCephalic, Moist mucous membranes and Atraumatic
Respiratory: Clear
Cardiac: S1/S2 and Regular Rhythm; No Murmur or Rub
GI: Soft, Non Tender, Non Distended and Normal Bowel Sounds; No Organomegaly
Rectal: Deferred by Provider
Musculoskeletal: No Clubbing, No Cyanosis and No Edema
Skin: No Rash
Neuro: AO x 3 and Nonfocal/grossly intact
Psych: Calm
Labs
Lab Results
WBC 3.1 10^3/uL (4.8-10.8) L 05/04/25 07:32
RBC 3.45 10^6/uL (4.70-6.10) L 05/04/25 07:32
Hgb 10.6 g/dL (13.0-18.0) L 05/04/25 07:32
Hct 30.9 % (39.0-52.0) L 05/04/25 07:32
MCV 89.6 fL (80.0-94.0) 05/04/25 07:32
MCH 30.7 pg (27.0-31.0) 05/04/25 07:32
MCHC 34.3 g/dL (33.0-37.0) 05/04/25 07:32
RDW 13.2 % (11.5-14.5) 05/04/25 07:32
Plt Count 42 10^3/uL (130-400) L D 05/04/25 07:32
MPV 11.3 fL (7.4-10.4) H 05/04/25 07:32
Abs Immat Gran (auto) 0.1 10^3/uL (0-0.05) H 05/03/25 16:25
Absolute Neuts (auto) 1.8 10^3/uL (1.4-6.5) 05/03/25 16:25
Absolute Lymphs (auto) 0.2 10^3/uL (1.2-3.4) L 05/03/25 16:25
Absolute Monos (auto) 0.2 10^3/uL (0.1-0.6) 05/03/25 16:25
Absolute Eos (auto) 0.0 10^3/uL (0-0.7) 05/03/25 16:25
Absolute Basos (auto) 0.1 10^3/uL (0-0.2) 05/03/25 16:25
Immature Gran % 3.5 % (0-0.5) H 05/03/25 16:25
Neutrophils % 78.8 % (42.2-75.2) H 05/03/25 16:25
Lymphocytes % 7.8 % (20.5-51.1) L 05/03/25 16:25
Monocytes % 6.9 % (1.7-9.3) 05/03/25 16:25
Eosinophils % 0.4 % (0-6) 05/03/25 16:25
Basophils % 2.6 % (0-2) H 05/03/25 16:25
Creatinine 3.7 mg/dL (0.7-1.3) H 05/04/25 07:32
Vital Signs
Vital Signs
Temp Pulse Resp BP Pulse Ox
97.9 F 110 18 92/48 94
05/04/25 08:14 05/04/25 08:14 05/04/25 08:14 05/04/25 08:14 05/04/25 08:14
[2025-05-04 11:57] VITALS: BMI 27.6
--- NOTE | 2025-05-04 13:51 | W.CON.NEPH ---
Consultation
-
Date/Time Consultation Requested: May 03, 2025 at 1800
Date/Time Consultation Performed: May 04, 2025 at 1 PM
Requesting Provider: Rosa Solis
Performing Provider: Dr. Bautista
Reason for Consultation: Acute kidney injury
Medical History
-
Chief Complaint: Acute kidney injury
History of Present Illness:
75yoM with a history of metastatic rectal cancer with pulmonary metastases on chemotherapy, HTN presented to us with n/v and generalized abdominal pain since last . Present with his family help with history. He has been having diarrhea
loose stools with blood, nausea vomiting he started chemo last week has a very poor appetite. His urine is very dark.
Renal consultation for acute kidney injury with on consultation 3.7 and hyponatremia with a sodium of 123. Creatinine yesterday on admission was 2.9 he is hypotensive. Baseline creatinine 0.6
Past Medical History
Metastatic rectal cancer with pulmonary metastases on chemotherapy, HTN
Social History
Tobacco: Non-Smoker
Alcohol: None
Family History
Family History: Not Pertinent
Allergies / Home Medications
Allergy/AdvReac Type Severity Reaction Status Date / Time
No Known Allergies Allergy Verified 05/03/25 21:28
�Medication �Instructions �Recorded �Confirmed �Type
lisinopril 20 mg tablet 20 mg PO HS Blood Pressure 11/12/23 05/03/25 History
sucralfate 100 mg/mL oral 1 g (10 mL) PO QIDPRN PRN upper 04/30/25 05/03/25 Rx
suspension abd pain/chest pain #500 mL
acetaminophen 325 mg tablet 650 mg PO Q6HPRN PRN mild pain 05/03/25 05/03/25 History
(Tylenol)
baclofen 5 mg tablet 5 mg PO Q8HPRN PRN hipcups 05/03/25 05/03/25 History
bismuth subsalicylate 262 mg 2 tab PO DAILYPRN PRN gerd 05/03/25 05/03/25 History
chewable tablet (Pepto-Bismol)
simethicone 80 mg chewable tablet 80 mg PO DAILYPRN PRN gas pains 05/03/25 05/03/25 History
Review of Systems
-
Dark urine and decreased no nausea or vomiting currently. Ate breakfast
All other systems: Negative unless noted
Physical Exam
Vital Signs
Vital Signs
Temp Pulse Resp BP Pulse Ox
97.9 F 110 18 92/48 94
05/04/25 08:14 05/04/25 08:14 05/04/25 08:14 05/04/25 08:14 05/04/25 08:14
Lab Results
WBC 3.1 10^3/uL (4.8-10.8) L 05/04/25 07:32
RBC 3.45 10^6/uL (4.70-6.10) L 05/04/25 07:32
Hgb 10.6 g/dL (13.0-18.0) L 05/04/25 07:32
Hct 30.9 % (39.0-52.0) L 05/04/25 07:32
Plt Count 42 10^3/uL (130-400) L D 05/04/25 07:32
Sodium 123 mmol/L (135-145) L 05/04/25 07:32
Potassium 3.8 mmol/L (3.5-5.1) 05/04/25 07:32
Chloride 95 mmol/L (98-107) L 05/04/25 07:32
Carbon Dioxide 21 mmol/L (22-30) L 05/04/25 07:32
BUN 66 mg/dl (9-20) H 05/04/25 07:32
Creatinine 3.7 mg/dL (0.7-1.3) H 05/04/25 07:32
eGFR 16.13 05/04/25 07:32
Glucose 96 mg/dl (70-99) 05/04/25 07:32
Calcium 7.5 mg/dl (8.4-10.2) L 05/04/25 07:32
Albumin 2.5 g/dl (3.5-5.0) L 05/03/25 17:13
Physical Exam
General no acute distress
HEENT no cephalic atraumatic extraocular muscle intact no scleral icterus no JVD neck supple
lungs clear to auscultation bilateral
heart regular S1-S2 positive
abdomen soft nontender positive bowel sounds
extremities no edema pulses present bilateral
Neurologically nonfocal alert and oriented x 3
Skin no lesions no abrasions no petechiae
Psych normal affect no bizarre behavior
Data Reviewed
-
Radiology: Image Personally Visualized and interpreted
CT Scan: Image Personally Visualized and interpreted
Labs: Labs Reviewed by me, Discussed with Patient and Discussed with Family
Assessment/Plan
-
75yoM with a history of metastatic rectal cancer with pulmonary metastases on chemotherapy, HTN presented to us with n/v and generalized abdominal pain since last . Present with his family help with history. He has been having diarrhea
loose stools with blood, nausea vomiting he started chemo last week has a very poor appetite. His urine is very dark.
Renal consultation for acute kidney injury with on consultation 3.7 and hyponatremia with a sodium of 123. Creatinine yesterday on admission was 2.9 he is hypotensive. Baseline creatinine 0.6
Impression.
Acute kidney injury all volume mediated in the setting of GI losses nausea vomiting decreased p.o. intake hypotension.
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
Metastatic rectal cancer on chemotherapy status post FOLFIRI bevacizumab administered 04/25
Plan.
Agree with IV fluids will increase the rate to 150 cc/h
Urine output
No obstructive uropathy on imaging
Renal dose medications appropriate for GFR
Discussed with family at the bedside
--- NOTE | 2025-05-04 15:07 | CM ---
Patient seen at bedside on . Patient stated that he lives with in a one and a half story home. patient states that he has no DME and no prior need for VN supports or SNF. Patient PCP is Dr. Baron and he uses the [facility] in [place] [address] Patient indicated no needs for discharge at this time. CM will continue to follow for discharge planning needs.
Plan; home with no needs pending medical treatment plan;
[2025-05-04 15:41] VITALS: BP 119/62
[2025-05-04] MEDS: COMPAZINE 5 MG IV (18:12)
[2025-05-04 23:25] VITALS: BP 113/60
[2025-05-05 07:11] LABS: Hematocrit 29.6 % (39.0-52.0); Hemoglobin 10.5 g/dL (13.0-18.0); Mean Corp Hgb Conc. 35.5 g/dL (33.0-37.0); Mean Corpuscular Volume 89.2 fL (80.0-94.0); Platelet Count 43 10^3/uL (130-400); Red Cell Dist. Width 13.2 % (11.5-14.5)
[2025-05-05 07:19] LABS: Blood Urea Nitrogen 69 mg/dl (9-20); Calcium 7.8 mg/dl (8.4-10.2); Carbon Dioxide 23 mmol/L (22-30); Chloride 100 mmol/L (98-107); Estimated Creatinine Clearance 15 ml/min; Glucose 124 mg/dl (70-99); Potassium 3.8 mmol/L (3.5-5.1); Sodium 126 mmol/L (135-145); eGFR 17.85
[2025-05-05] MEDS: NSS 1000 IV ×2 (07:28→14:22)
--- NOTE | 2025-05-05 07:50 | W.PN.HOSP.TC ---
Today's Communication/Plan
-
cont IVF support, reduce rate given improvement oral intake
compazine prn nausea/hiccups
Gas-x prn bloating gas discomfort burping
Protonix increased to BID
monitor renal function
Assessment / Plan
Assessment / Plan
Physical Exam
General: No acute distress, appears comfortable at this time.
HEENT: NormoCephalic, Moist mucous membranes and Atraumatic
Respiratory: Clear
Cardiac: S1/S2 and Regular Rhythm; No Murmur or Rub
GI: Soft, mild tenderness/distension, bowel sounds present
Musculoskeletal: No Clubbing, No Cyanosis and No Edema
Skin: No Rash
Neuro: AO x 3 conversant coherent
Psych: Calm
75M HTN rectal ca w/ Pulm mets here for severe ANAMARIA w/ associate abd pain/n/v/d following start of chemo.
# Nausea/vomiting/poor appetite
#hxt of colorectal ca juan to lungs on chemo-[facility]
#noted concern for possible Sepsis on Admission (reports of fever at home, tachycardia and leukopenia noted on presentation)- appears unlikely at this time given overall improvement w/o need for abx
-recent CT chest abdomen pelvis with No pulmonary embolism or other significant acute abnormality identified in the chest, abdomen or pelvis, as described above.Slightly progressed extensive bilateral pulmonary metastases.Slightly progressed
retroperitoneal lymphadenopathy, likely malignant.
-clear liquid diet gradually advanced to low residue, tolerating.
-compazine prn for n/v/hiccups
-gas-x prn burping bloating gas discomfort
-IV PPI increased to BID
-covid neg
- stool studies were ordered but diarrhea since resolved following admission, studies subsequently canceled
-chest x ray appreciated Mild to moderate elevation right hemidiaphragm, no pna
-follow blood cultures no growth to date.
-Abd US appreciated Gallbladder sludge, gallbladder wall top normal in thickness. Likely pericholecystic fluid. Negative sonographic Casas's sign. No findings to suggest biliary tract dilatation
-Mild bilirubin elevation improving
-follow up Abd X-ray 05/05 Mild small bowel dilatation probably due to small bowel ileus. Partial or developing small bowel obstruction not excluded
-Patient otherwise tolerating diet as above, cont for now.
# Leukopenia/pancytopenia likely from chemo/metastatic colorectal cancer
monitor
Oncology eval appreciated
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
# Hypokalemia likely from nausea vomiting
# Acute kidney injury likely dehydration, possible recent CT contrast use contributing
-monitor and replete electrolytes as necessary
-IVF support continued, rate reduced with improvement oral intake
-monitor BMP
-Renal US appreciated no acute abn's
-Nephro eval appreciated
#essential HTN
-hold lisinopril due to ANAMARIA, bp well controlled w/o so far
#DVT prophylaxis
-scd
#CODE status
-full code
Discussed with patient and patient's Sharonda at bedside
I spent a total of 45 minutes with the patient or on the floor. More than 50% of this time involved counseling and coordination of care.
Anticipated Discharge: 24 - 48 hours
Subjective/Interval History
-
Date of Service: May 05, 2025
Seen and examined at bedside in no acute distress resting comfortably in bed. Reports intermittent burping, persistent abd discomfort. Diarrhea since resolved but now appears to have constipation. Patient also endorses coughing notably later in
the day. Denies SOB.
Objective Data
-
Labs:
Laboratory Results
05/05/25
06:26
WBC 7.2
Hgb 10.5 L
Hct 29.6 L
Plt Count 43 L
Sodium 126 L
Potassium 3.8
Chloride 100
Carbon Dioxide 23
BUN 69 H
Creatinine 3.4 H
Glucose 124 H
Calcium 7.8 L
Vital Signs:
Vital Signs
Temp Pulse Resp BP Pulse Ox
98.0 F 97 18 113/60 95
05/04/25 23:25 05/04/25 23:25 05/04/25 23:25 05/04/25 23:25 05/05/25 00:52
I&O
05/04/25 05/05/25 05/06/25
06:59 06:59 06:59
Intake Total 630 / 630 1020 / 1020
Output Total 300 / 300 600 / 600
Balance 330 / 330 420 / 420
[2025-05-05 07:53] VITALS: BP 118/59
[2025-05-05] MEDS: NSS (PRESERVATIVE FREE) 10 ML IV ×2 (07:56→21:06)
[2025-05-05] MEDS: PROTONIX IV 40 MG IV ×2 (08:01→21:06)
[2025-05-05] MEDS: MYLICON 80 MG PO (10:51)
[2025-05-05 11:28] LABS: ALT (SGPT) 36 U/L (0-50); AST (SGOT) 30 U/L (17-59); Albumin 2.3 g/dl (3.5-5.0); Alkaline Phosphatase 124 U/L (38-126); Total Protein 4.7 g/dl (6.3-8.2)
--- NOTE | 2025-05-05 14:43 | CM ---
Chart reviewed and patient is for discharge to home with family, and visiting nurses, options reviewed and patient has selected [facility].
Plan; Home with [facility].
[2025-05-05 15:12] VITALS: BP 127/71
--- NOTE | 2025-05-05 15:22 | VNURNOTE ---
Home Health Liaison met with patient and son and spouse at bedside to discuss [facility] nurse/therapy, visits, schedule and homebound status. Patient is agreeable and understands that visits at home will be 2-3 x per week to assess and teach medical
management. Patient is aware that [facility] will contact them for start of care within a week after discharge from . Provided contact number for [facility].
[facility] referral completed in [facility].
--- NOTE | 2025-05-05 16:14 | W.PN.NEPH.PH ---
Addendum entered and electronically signed by Fiordaliza Mace MD 05/05/25 18:20:
met family at bedside and reviewed renal prognosis, await labs in am and cont IVF
Original Note:
Today's Communication / Plan
-
IVF, follow labs
Assessment/Plan
-
75yoM with a history of metastatic rectal cancer with pulmonary metastases on chemotherapy, HTN presented to us with n/v and generalized abdominal pain since last . Present with his family help with history. He has been having diarrhea
loose stools with blood, nausea vomiting he started chemo last week has a very poor appetite. His urine is very dark.
Renal consultation for acute kidney injury with on consultation 3.7 and hyponatremia with a sodium of 123. Creatinine yesterday on admission was 2.9 he is hypotensive. Baseline creatinine 0.6
Impression.
Acute kidney injury all volume mediated in the setting of GI losses nausea vomiting decreased p.o. intake hypotension.
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
Metastatic rectal cancer on chemotherapy status post FOLFIRI bevacizumab administered 04/25
Plan.
ANAMARIA-suspect prerenal, U na low 10. UA with UTI sample but cx neg
renal US non acute and non oliguric with out denson
Renal dose medications appropriate for GFR
BP stable with out meds
hyponatremia -hypovolemic improving with IVF
would cont iVF and encourage solute intake
would start gentle FR
follow labs in am
d/w pt
-
-
Date of Service: May 05, 2025
CC / HPI / ROS
-
Chief Complaint:
ANAMARIA, hyponatremia
History of Present Illness:
cr better at 3.4, sodium up at 126
Bp stable
Review of Systems:
no cp or sob
but sore stomach, no nausea
tolerating po
Labs
-
Labs:
WBC 7.2 10^3/uL (4.8-10.8) 05/05/25 06:26
RBC 3.32 10^6/uL (4.70-6.10) L 05/05/25 06:26
Hgb 10.5 g/dL (13.0-18.0) L 05/05/25 06:26
Hct 29.6 % (39.0-52.0) L 05/05/25 06:26
Plt Count 43 10^3/uL (130-400) L 05/05/25 06:26
Sodium 126 mmol/L (135-145) L 05/05/25 06:26
Potassium 3.8 mmol/L (3.5-5.1) 05/05/25 06:26
Chloride 100 mmol/L (98-107) 05/05/25 06:26
Carbon Dioxide 23 mmol/L (22-30) 05/05/25 06:26
BUN 69 mg/dl (9-20) H 05/05/25 06:26
Creatinine 3.4 mg/dL (0.7-1.3) H 05/05/25 06:26
eGFR 17.85 05/05/25 06:26
Glucose 124 mg/dl (70-99) H 05/05/25 06:26
Calcium 7.8 mg/dl (8.4-10.2) L 05/05/25 06:26
Albumin 2.3 g/dl (3.5-5.0) L 05/05/25 06:26
Physical Exam
-
Vital Signs:
Vital Signs
Temp Pulse Resp BP Pulse Ox
98.0 F 105 18 127/71 96
05/05/25 15:12 05/05/25 15:12 05/05/25 15:12 05/05/25 15:12 05/05/25 15:12
Cardiovascular:: Regular rate and rhythm
Respiratory:: Bilateral: CTA
Lung Excursion:: Normal
Abdomen:: Nontender and Soft
Extremity Edema:: None: Bilateral: (trace)
Denson Catheter: No
[2025-05-05 23:53] VITALS: BP 127/72
[2025-05-06] MEDS: NSS 1000 IV ×2 (01:12→09:34)
[2025-05-06] MEDS: COMPAZINE 5 MG IV (04:12)
[2025-05-06 06:00] VITALS: BMI 27.7
[2025-05-06 07:19] LABS: Hematocrit 29.3 % (39.0-52.0); Hemoglobin 10.0 g/dL (13.0-18.0); Mean Corp Hgb Conc. 34.1 g/dL (33.0-37.0); Mean Corpuscular Volume 89.9 fL (80.0-94.0); Platelet Count 43 10^3/uL (130-400); Red Cell Dist. Width 13.8 % (11.5-14.5)
[2025-05-06 07:27] VITALS: BP 132/73
[2025-05-06 07:28] LABS: ALT (SGPT) 42 U/L (0-50); AST (SGOT) 39 U/L (17-59); Albumin 2.1 g/dl (3.5-5.0); Alkaline Phosphatase 146 U/L (38-126); Blood Urea Nitrogen 45 mg/dl (9-20); Calcium 7.8 mg/dl (8.4-10.2); Carbon Dioxide 24 mmol/L (22-30); Chloride 109 mmol/L (98-107); Estimated Creatinine Clearance 29 ml/min; Glucose 129 mg/dl (70-99); Potassium 3.5 mmol/L (3.5-5.1); Sodium 136 mmol/L (135-145); Total Protein 4.6 g/dl (6.3-8.2); eGFR 38.29
--- NOTE | 2025-05-06 07:56 | W.PN.HOSP.TC ---
Today's Communication/Plan
-
see a/p
Assessment / Plan
Assessment / Plan
Physical Exam
General: No acute distress, appears comfortable at this time.
HEENT: NormoCephalic, Moist mucous membranes and Atraumatic
Respiratory: Clear
Cardiac: S1/S2 and Regular Rhythm; No Murmur or Rub
GI: Soft, mild tenderness/distension, bowel sounds present
Musculoskeletal: No Clubbing, No Cyanosis and No Edema
Skin: No Rash
Neuro: AO x 3 conversant coherent
Psych: Calm
75M HTN rectal ca w/ Pulm mets here for severe ANAMARIA w/ associate abd pain/n/v/d following start of chemo.
# Nausea/vomiting/poor appetite
#hxt of colorectal ca juan to lungs on chemo-[facility]
#noted concern for possible Sepsis on Admission (reports of fever at home, tachycardia and leukopenia noted on presentation)- appears unlikely at this time given overall improvement w/o need for abx
-recent CT chest abdomen pelvis with No pulmonary embolism or other significant acute abnormality identified in the chest, abdomen or pelvis, as described above.Slightly progressed extensive bilateral pulmonary metastases.Slightly progressed
retroperitoneal lymphadenopathy, likely malignant.
-clear liquid diet gradually advanced to low residue, tolerating.
-Thorazine prn for n/v/hiccups
-gas-x prn burping bloating gas discomfort
-IV PPI increased to BID
-covid neg
- stool studies were ordered but diarrhea since resolved following admission, studies subsequently canceled
-chest x ray appreciated Mild to moderate elevation right hemidiaphragm, no pna
-follow blood cultures no growth to date.
-Abd US appreciated Gallbladder sludge, gallbladder wall top normal in thickness. Likely pericholecystic fluid. Negative sonographic Casas's sign. No findings to suggest biliary tract dilatation
-Mild bilirubin elevation improving
-follow up Abd X-ray 05/05 Mild small bowel dilatation probably due to small bowel ileus. Partial or developing small bowel obstruction not excluded
-Patient otherwise tolerating diet as above, cont for now.
# Leukopenia/pancytopenia likely from chemo/metastatic colorectal cancer
monitor
Oncology eval appreciated
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
# Hypokalemia likely from nausea vomiting
# Acute kidney injury likely dehydration, possible recent CT contrast use contributing
-monitor and replete electrolytes as necessary
-IVF support continued, rate reduced with improvement oral intake and kidney function
-monitor BMP
-Renal US appreciated no acute abn's
-Nephro eval appreciated
#essential HTN
-hold lisinopril due to ANAMARIA, bp well controlled w/o so far
#DVT prophylaxis
-scd
#CODE status
-full code
Discussed with patient and patient's Sharonda at bedside
I spent a total of 42 minutes with the patient or on the floor. More than 50% of this time involved counseling and coordination of care.
Anticipated Discharge: 24 - 48 hours
Subjective/Interval History
-
Date of Service: May 06, 2025
Seen and examined at bedside in no acute distress sitting up comfortably in bed. Abdomen pain persists though improved. Tolerating low residue diet. reports constipation and persistent intermittent hiccups
Objective Data
-
Labs:
Laboratory Results
05/06/25
06:19
WBC 12.2 H
Hgb 10.0 L
Hct 29.3 L
Plt Count 43 L
Sodium 136 D
Potassium 3.5
Chloride 109 H
Carbon Dioxide 24
BUN 45 H
Creatinine 1.8 H
Glucose 129 H
Calcium 7.8 L
Total Bilirubin 1.8 H
AST 39
ALT 42
Alkaline Phosphatase 146 H
Vital Signs:
Vital Signs
Temp Pulse Resp BP Pulse Ox
97.6 F 94 16 127/72 95
05/05/25 23:53 05/05/25 23:53 05/05/25 23:53 05/05/25 23:53 05/05/25 23:53
I&O
05/05/25 05/06/25 05/07/25
06:59 06:59 06:59
Intake Total 1020 / 1020 2680 / 2680
Output Total 600 / 600
Balance 420 / 420 2680 / 2680
[2025-05-06] MEDS: NSS (PRESERVATIVE FREE) 10 ML IV ×2 (08:17→21:10)
[2025-05-06] MEDS: PROTONIX IV 40 MG IV ×2 (08:18→21:10)
--- NOTE | 2025-05-06 10:38 | W.PN.ONC ---
Today's Communication / Plan
-
Renal function improving
Will add Miralax for constipation (no BM since Thursday)
Trial of thorazine for hiccups. Can try Reglan 10mg 3-4x/d if no relief w/ thorazine
Monitor CBC
Next chemo (05/09) will be delayed
Impression
Impression
Nausea/abdominal pain post FOLFIRI bevacizumab administered 04/25
Leukopenia without growth factor support given posttreatment no absolute neutropenia ANC 1.8
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
Acute renal failure likely prerenal azotemia
Diarrhea at admission, now constipation
Intractable hiccups
Plan
Plan
Renal function improving
Will add Miralax for constipation (no BM since Thursday)
Trial of thorazine for hiccups. Can try Reglan 10mg 3-4x/d if no relief w/ thorazine
Monitor CBC
Next chemo (05/09) will be delayed
Subjective/Objective
Subjective/Objective
c/o feeling lousy overall
No BM since diarrhea stopped on Thursday
Still w/ hiccups
Vital Signs:
Vital Signs
Temp Pulse Resp BP Pulse Ox
97.9 F 94 18 132/73 96
05/06/25 07:27 05/06/25 07:27 05/06/25 07:27 05/06/25 07:27 05/06/25 07:27
Lab Results:
Laboratory Data
WBC 12.2 10^3/uL (4.8-10.8) H 05/06/25 06:19
Hgb 10.0 g/dL (13.0-18.0) L 05/06/25 06:19
Plt Count 43 10^3/uL (130-400) L 05/06/25 06:19
eGFR 38.29 05/06/25 06:19
Orders
Orders
Orders From Last 24 Hours
05/06/25 10:33
Polyethylene Glycol Powder [Miralax] 17 grams PO DAILYPRN PRN
05/06/25 10:36
Chlorpromazine [Thorazine] 10 mg PO Q4HPRN PRN
[2025-05-06] MEDS: THORAZINE 10 MG PO (14:20)
[2025-05-06] MEDS: MIRALAX 17 GRAMS PO (14:20)
[2025-05-06 15:04] VITALS: BP 134/71
--- NOTE | 2025-05-06 16:41 | W.PN.NEPH.PH ---
Today's Communication / Plan
-
d/c IVF later tonight
labs in am
Assessment/Plan
-
75yoM with a history of metastatic rectal cancer with pulmonary metastases on chemotherapy, HTN presented to us with n/v and generalized abdominal pain since last . Present with his family help with history. He has been having diarrhea
loose stools with blood, nausea vomiting he started chemo last week has a very poor appetite. His urine is very dark.
Renal consultation for acute kidney injury with on consultation 3.7 and hyponatremia with a sodium of 123. Creatinine yesterday on admission was 2.9 he is hypotensive. Baseline creatinine 0.6
Impression.
Acute kidney injury all volume mediated in the setting of GI losses nausea vomiting decreased p.o. intake hypotension.
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
Metastatic rectal cancer on chemotherapy status post FOLFIRI bevacizumab administered 04/25
Plan.
ANAMARIA-suspect prerenal, U na low 10. UA with UTI sample but cx neg
renal US non acute and non oliguric with out denson
cr improving to 1.8, complete current IVF bag and not resume
BP stable with out meds
hyponatremia -hypovolemic improved with IVF
encourage solute intake
follow labs in am
d/w pt and nursing
-
-
Date of Service: May 06, 2025
CC / HPI / ROS
-
Chief Complaint:
ANAMARIA, hyponatremia
History of Present Illness:
cr better at 1.8, sodium up at 136
Bp stable
Review of Systems:
no cp or sob
no nausea
tolerating po , had BMs
Labs
-
Labs:
WBC 12.2 10^3/uL (4.8-10.8) H 05/06/25 06:19
RBC 3.26 10^6/uL (4.70-6.10) L 05/06/25 06:19
Hgb 10.0 g/dL (13.0-18.0) L 05/06/25 06:19
Hct 29.3 % (39.0-52.0) L 05/06/25 06:19
Plt Count 43 10^3/uL (130-400) L 05/06/25 06:19
Sodium 136 mmol/L (135-145) D 05/06/25 06:19
Potassium 3.5 mmol/L (3.5-5.1) 05/06/25 06:19
Chloride 109 mmol/L (98-107) H 05/06/25 06:19
Carbon Dioxide 24 mmol/L (22-30) 05/06/25 06:19
BUN 45 mg/dl (9-20) H 05/06/25 06:19
Creatinine 1.8 mg/dL (0.7-1.3) H 05/06/25 06:19
eGFR 38.29 05/06/25 06:19
Glucose 129 mg/dl (70-99) H 05/06/25 06:19
Calcium 7.8 mg/dl (8.4-10.2) L 05/06/25 06:19
Albumin 2.1 g/dl (3.5-5.0) L 05/06/25 06:19
Physical Exam
-
Vital Signs:
Vital Signs
Temp Pulse Resp BP Pulse Ox
98.6 F 99 18 134/71 95
05/06/25 15:04 05/06/25 15:04 05/06/25 15:04 05/06/25 15:04 05/06/25 15:04
Cardiovascular:: Regular rate and rhythm
Respiratory:: Bilateral: CTA
Lung Excursion:: Normal
Abdomen:: Nontender and Soft
Extremity Edema:: None: Bilateral:
Denson Catheter: No
[2025-05-06 23:58] VITALS: BP 146/76
[2025-05-07] MEDS: NSS 1000 IV (01:44)
[2025-05-07 06:00] VITALS: BMI 28.4
[2025-05-07 07:00] VITALS: BP 149/85
[2025-05-07 07:23] LABS: Blood Urea Nitrogen 26 mg/dl (9-20); Calcium 7.8 mg/dl (8.4-10.2); Carbon Dioxide 25 mmol/L (22-30); Chloride 110 mmol/L (98-107); Estimated Creatinine Clearance 47 ml/min; Glucose 121 mg/dl (70-99); Sodium 139 mmol/L (135-145); eGFR > 60.00
[2025-05-07 07:28] LABS: Potassium 3.2 mmol/L (3.5-5.1)
[2025-05-07] MEDS: PROTONIX IV 40 MG IV ×2 (07:32→19:35)
[2025-05-07] MEDS: NSS (PRESERVATIVE FREE) 10 ML IV ×2 (07:33→19:35)
[2025-05-07 07:38] LABS: Hematocrit 29.3 % (39.0-52.0); Hemoglobin 10.0 g/dL (13.0-18.0); Mean Corp Hgb Conc. 34.1 g/dL (33.0-37.0); Mean Corpuscular Volume 90.4 fL (80.0-94.0); Platelet Count 66 10^3/uL (130-400); Red Cell Dist. Width 14.1 % (11.5-14.5)
--- NOTE | 2025-05-07 08:19 | W.PN.HOSP.TC ---
Today's Communication/Plan
-
IVF dc, monitor off
Thorazine prn hiccups
Lisinopril resumed with holding parameters
Monitor CBC, iron studies, B12, Folate
Possible discharge tomorrow if remains stable, cont to improve
Assessment / Plan
Assessment / Plan
Physical Exam
General: No acute distress, appears comfortable at this time.
HEENT: NormoCephalic, Moist mucous membranes and Atraumatic
Respiratory: Clear
Cardiac: S1/S2 and Regular Rhythm; No Murmur or Rub
GI: Soft, mild tenderness/distension, bowel sounds present
Musculoskeletal: No Clubbing, No Cyanosis and No Edema
Skin: No Rash
Neuro: AO x 3 conversant coherent
Psych: Calm
75M HTN rectal ca w/ Pulm mets here for severe ANAMARIA w/ associate abd pain/n/v/d following start of chemo.
# Nausea/vomiting/poor appetite
#hxt of colorectal ca juan to lungs on chemo-[facility]
#noted concern for possible Sepsis on Admission (reports of fever at home, tachycardia and leukopenia noted on presentation)- appears unlikely at this time given overall improvement w/o need for abx
-recent CT chest abdomen pelvis with No pulmonary embolism or other significant acute abnormality identified in the chest, abdomen or pelvis, as described above.Slightly progressed extensive bilateral pulmonary metastases.Slightly progressed
retroperitoneal lymphadenopathy, likely malignant.
-clear liquid diet gradually advanced to low residue, tolerating.
-Thorazine prn for n/v/hiccups (home baclofen held d/t anamaria)
-gas-x prn burping bloating gas discomfort
-IV PPI increased to BID switched to PO, tolerating diet
-covid neg
- stool studies were ordered but diarrhea since resolved following admission, studies subsequently canceled
-chest x ray appreciated Mild to moderate elevation right hemidiaphragm, no pna
-follow blood cultures no growth to date.
-Abd US appreciated Gallbladder sludge, gallbladder wall top normal in thickness. Likely pericholecystic fluid. Negative sonographic Casas's sign. No findings to suggest biliary tract dilatation
-Mild bilirubin elevation improving
-follow up Abd X-ray 05/05 Mild small bowel dilatation probably due to small bowel ileus. Partial or developing small bowel obstruction not excluded
-Patient otherwise tolerating diet as above, cont for now.
# Leukopenia/pancytopenia likely from chemo/metastatic colorectal cancer
monitor
Oncology eval appreciated
Leukopenia since resolved, progressive Leukocytosis
H&H stable
Thrombocytopenia improving
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
# Hypokalemia likely from nausea vomiting
# Acute kidney injury likely dehydration, possible recent CT contrast use contributing
-monitor and replete electrolytes as necessary
-ANAMARIA resolved, IVF discontinued, monitor off
-monitor BMP
-Renal US appreciated no acute abn's
-Nephro eval appreciated
#essential HTN
-home lisinopril held d/t ANAMARIA, since resumed
#Daytime sleepiness
at bedside endorses observing episodes apnea (patient intermittently waking up, gasping)
suspect BRYON. outpt sleep study recommended
#DVT prophylaxis
-scd
#CODE status
-full code
Discussed with patient and patient's Encarnita at bedside
I spent a total of 37 minutes with the patient or on the floor. More than 50% of this time involved counseling and coordination of care.
Anticipated Discharge: 24 - 48 hours
Subjective/Interval History
-
Date of Service: May 07, 2025
no acute distress, resting comfortably in bed, constipation resolved. General malaise persists. Tolerating diet. Abd pain persists though improved. Occasional intermittent hiccups. Reports relief hiccups with thorazine.
Objective Data
-
Labs:
Laboratory Results
05/07/25
06:34
WBC 14.6 H
Hgb 10.0 L
Hct 29.3 L
Plt Count 66 L D
Sodium 139
Potassium 3.2 L
Chloride 110 H
Carbon Dioxide 25
BUN 26 H
Creatinine 1.1
Glucose 121 H
Calcium 7.8 L
Vital Signs:
Vital Signs
Temp Pulse Resp BP Pulse Ox
99.4 F 96 16 146/76 100
05/06/25 23:58 05/06/25 23:58 05/06/25 23:58 05/06/25 23:58 05/06/25 23:58
I&O
05/06/25 05/07/25 05/08/25
06:59 06:59 06:59
Intake Total 2680 / 2680
Output Total 250 / 250
Balance 2680 / 2680 -250 / -250
[2025-05-07 09:46] LABS: ALT (SGPT) 44 U/L (0-50); AST (SGOT) 39 U/L (17-59); Albumin 2.3 g/dl (3.5-5.0); Alkaline Phosphatase 184 U/L (38-126); Total Protein 4.9 g/dl (6.3-8.2)
[2025-05-07] MEDS: KCL ELIXIR 40 MEQ PO (11:49)
[2025-05-07] MEDS: ANESTHETIC LOZENGE 1 LOZENGE PO (14:49)
[2025-05-07] MEDS: THORAZINE 10 MG PO (14:49)
[2025-05-07 15:00] VITALS: BP 146/89
--- NOTE | 2025-05-07 15:31 | W.PN.NEPH.PH ---
Today's Communication / Plan
-
follow labs
Assessment/Plan
-
75yoM with a history of metastatic rectal cancer with pulmonary metastases on chemotherapy, HTN presented to us with n/v and generalized abdominal pain since last . Present with his family help with history. He has been having diarrhea
loose stools with blood, nausea vomiting he started chemo last week has a very poor appetite. His urine is very dark.
Renal consultation for acute kidney injury with on consultation 3.7 and hyponatremia with a sodium of 123. Creatinine yesterday on admission was 2.9 he is hypotensive. Baseline creatinine 0.6
Impression.
Acute kidney injury all volume mediated in the setting of GI losses nausea vomiting decreased p.o. intake hypotension.
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
Metastatic rectal cancer on chemotherapy status post FOLFIRI bevacizumab administered 04/25
Plan.
ANAMARIA-suspect prerenal, U na low 10. UA with UTI sample but cx neg
renal US non acute and non oliguric with out denson
cr improving to 1.19baseline cr 0.8) maintain off IVF
BP stable with out meds
replace k
encourage solute intake
follow labs in am
d/w pt and
will s/o, call with ?s
-
-
Date of Service: May 07, 2025
CC / HPI / ROS
-
Chief Complaint:
ANAMARIA, hyponatremia
History of Present Illness:
cr better at 1.1, sodium up at 139
k low 3.2
Bp stable
Review of Systems:
no cp or sob
no nausea
tolerating po
Labs
-
Labs:
WBC 14.6 10^3/uL (4.8-10.8) H 05/07/25 06:34
RBC 3.24 10^6/uL (4.70-6.10) L 05/07/25 06:34
Hgb 10.0 g/dL (13.0-18.0) L 05/07/25 06:34
Hct 29.3 % (39.0-52.0) L 05/07/25 06:34
Plt Count 66 10^3/uL (130-400) L D 05/07/25 06:34
Sodium 139 mmol/L (135-145) 05/07/25 06:34
Potassium 3.2 mmol/L (3.5-5.1) L 05/07/25 06:34
Chloride 110 mmol/L (98-107) H 05/07/25 06:34
Carbon Dioxide 25 mmol/L (22-30) 05/07/25 06:34
BUN 26 mg/dl (9-20) H 05/07/25 06:34
Creatinine 1.1 mg/dL (0.7-1.3) 05/07/25 06:34
eGFR > 60.00 05/07/25 06:34
Glucose 121 mg/dl (70-99) H 05/07/25 06:34
Calcium 7.8 mg/dl (8.4-10.2) L 05/07/25 06:34
Albumin 2.3 g/dl (3.5-5.0) L 05/07/25 06:34
Physical Exam
-
Vital Signs:
Vital Signs
Temp Pulse Resp BP Pulse Ox
98.1 F 89 16 149/85 98
05/07/25 07:00 05/07/25 07:00 05/07/25 07:00 05/07/25 07:00 05/07/25 07:00
Cardiovascular:: Regular rate and rhythm
Respiratory:: Bilateral: CTA
Lung Excursion:: Normal
Abdomen:: Nontender and Soft
Extremity Edema:: None: Bilateral:
Denson Catheter: No
[2025-05-07 23:32] VITALS: BP 159/85
[2025-05-08 06:00] VITALS: BMI 28.3
[2025-05-08 07:55] VITALS: BP 138/78
[2025-05-08 08:36] LABS: Hematocrit 32.9 % (39.0-52.0); Hemoglobin 10.8 g/dL (13.0-18.0); Mean Corp Hgb Conc. 32.8 g/dL (33.0-37.0); Mean Corpuscular Volume 90.9 fL (80.0-94.0); Platelet Count 109 10^3/uL (130-400); Red Cell Dist. Width 14.3 % (11.5-14.5)
[2025-05-08] MEDS: PROTONIX 40 MG PO (08:40)
[2025-05-08 10:03] LABS: ALT (SGPT) 45 U/L (0-50); AST (SGOT) 35 U/L (17-59); Albumin 2.7 g/dl (3.5-5.0); Alkaline Phosphatase 276 U/L (38-126); Blood Urea Nitrogen 18 mg/dl (9-20); Calcium 8.0 mg/dl (8.4-10.2); Carbon Dioxide 28 mmol/L (22-30); Chloride 107 mmol/L (98-107); Estimated Creatinine Clearance 52 ml/min; Glucose 117 mg/dl (70-99); Iron 31 ug/dl (49-181); Magnesium 1.9 mg/dl (1.6-2.3); Potassium 3.4 mmol/L (3.5-5.1); Sodium 139 mmol/L (135-145); Total Protein 5.4 g/dl (6.3-8.2); eGFR > 60.00
[2025-05-08 10:13] LABS: Total Iron Binding Capacity 216 ug/dl (261-462)
[2025-05-08 11:10] LABS: Folate > 20.0 ng/ml (2.76-20); Vitamin B12 > 1000 pg/ml (239-931)
[2025-05-08 11:24] LABS: Ferritin 1020.0 ng/ml (17.9-464.0)
--- NOTE | 2025-05-08 12:48 | W.PN.HOSP.TC ---
Addendum entered and electronically signed by Sigifredo Aguiar MD 05/08/25 13:47:
Discussed with oncology, okay to discharge today
Time of discharge 38-minutes
Original Note:
Today's Communication/Plan
-
Monitor vital signs see plan
Oncology to evaluate today
Monitor leukocytosis, currently no signs of infection
Appears could be secondary to Neulasta
Replete potassium
Possible discharge later today
Assessment / Plan
Assessment / Plan
Physical Exam
General: No acute distress, appears comfortable at this time.
HEENT: NormoCephalic, Moist mucous membranes and Atraumatic
Respiratory: Clear
Cardiac: S1/S2 and Regular Rhythm; No Murmur or Rub
GI: Soft, mild tenderness/distension, bowel sounds present
Musculoskeletal: No Clubbing, No Cyanosis and No Edema
Skin: No Rash
Neuro: AO x 3 conversant coherent
Psych: Calm
75M HTN rectal ca w/ Pulm mets here for severe ANAMARIA w/ associate abd pain/n/v/d following start of chemo.
# Nausea/vomiting/poor appetite
#hxt of colorectal ca juan to lungs on chemo-[facility]
#noted concern for possible Sepsis on Admission (reports of fever at home, tachycardia and leukopenia noted on presentation)- appears unlikely at this time given overall improvement w/o need for abx
-recent CT chest abdomen pelvis with No pulmonary embolism or other significant acute abnormality identified in the chest, abdomen or pelvis, as described above.Slightly progressed extensive bilateral pulmonary metastases.Slightly progressed
retroperitoneal lymphadenopathy, likely malignant.
-clear liquid diet gradually advanced to low residue, tolerating.
-Thorazine prn for n/v/hiccups (home baclofen held d/t anamaria)
-gas-x prn burping bloating gas discomfort
-IV PPI increased to BID switched to PO, tolerating diet
-covid neg
- stool studies were ordered but diarrhea since resolved following admission, studies subsequently canceled
-chest x ray appreciated Mild to moderate elevation right hemidiaphragm, no pna
-follow blood cultures no growth to date.
-Abd US appreciated Gallbladder sludge, gallbladder wall top normal in thickness. Likely pericholecystic fluid. Negative sonographic Casas's sign. No findings to suggest biliary tract dilatation
-Mild bilirubin elevation improving
-follow up Abd X-ray 05/05 Mild small bowel dilatation probably due to small bowel ileus. Partial or developing small bowel obstruction not excluded. Now having bowel movement. Suspect ileus
-Patient otherwise tolerating diet as above, cont for now.
# Leukopenia/pancytopenia likely from chemo/metastatic colorectal cancer
monitor
Oncology eval appreciated
Leukopenia since resolved, progressive Leukocytosis
H&H stable
Thrombocytopenia improving
leukocytosis today, awaiting hematology eval patient. Received Neulasta 04/27 per oncology
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
# Hypokalemia likely from nausea vomiting
# Acute kidney injury likely dehydration, possible recent CT contrast use contributing
-monitor and replete electrolytes as necessary
-ANAMARIA resolved, IVF discontinued, monitor off
-monitor BMP
-Renal US appreciated no acute abn's
-Nephro eval appreciated
#essential HTN
-home lisinopril held d/t ANAMARIA, since resumed
#Daytime sleepiness
at bedside endorses observing episodes apnea (patient intermittently waking up, gasping)
suspect BRYON. outpt sleep study recommended
#DVT prophylaxis
-scd
#CODE status
-full code
Discussed with patient and patient's at bedside
Anticipated Discharge: Today
Subjective/Interval History
-
Date of Service: May 08, 2025
denies pain
Objective Data
-
Labs:
Laboratory Results
05/08/25
06:28
WBC 18.0 H
Hgb 10.8 L
Hct 32.9 L
Plt Count 109 L D
Sodium 139
Potassium 3.4 L
Chloride 107
Carbon Dioxide 28
BUN 18
Creatinine 1.0
Glucose 117 H
Calcium 8.0 L
Total Bilirubin 1.7 H
AST 35
ALT 45
Alkaline Phosphatase 276 H
Vital Signs:
Vital Signs
Temp Pulse Resp BP Pulse Ox
98.2 F 89 16 138/78 98
05/08/25 07:55 05/08/25 07:55 05/08/25 07:55 05/08/25 07:55 05/08/25 10:02
I&O
05/07/25 05/08/25 05/09/25
06:59 06:59 06:59
Intake Total 1740 / 1740
Output Total 250 / 250
Balance 1490 / 1490
[2025-05-08] MEDS: KCL 20 MEQ PO (13:09)
--- NOTE | 2025-05-08 13:46 | W.DCSUMMARY ---
Discharge Summary
Discharge Data
Date of Admission: 05/03/25
Date of Discharge: 05/08/25
-
Pending Results: Yes
Hospital Course
75-year-old male with past medical history of rectal cancer with pulmonary metastases, leukopenia, essential hypertension came to the hospital with nausea vomiting and poor appetite which was likely thought was secondary to malignancy. Patient also
had hiccups which continue to improve over time. Abdominal ultrasound was done which did not show any signs of biliary tract dilation. Abdominal x-ray was consistent with possible ileus. Patient was eventually put on laxatives and was able to
have bowel movement with improving symptoms. On this hospitalization he also had pancytopenia for which he was seen by hematology. He did had leukocytosis later in the hospitalization which was likely thought was secondary to possible Neulasta.
On this hospitalization he also had hyponatremia secondary to SIADH from metastatic cancer. He also had acute kidney injury which was likely thought was hypovolemic and continue to improve with fluids. Once patient's symptoms continue to improve,
he was then discharged home with instructions to follow-up with all his physicians outpatient.
Discharge Plan
-
Patient Disposition: Home with Home Care
Discharge Diagnosis/Procedures: Nausea vomiting diarrhea likely side effect Chemo
Hiccups
Anemia
Thrombocytopenia
Acute Kidney Injury resolved
Suspected Obstructive Sleep Apnea
Condition: Fair
Diet: Low Residue
Driving Restrictions: As prior to admission
Blood Work: CBC later this week with primary care provider or oncology
Others Tests: Follow up with primary care provider for outpt sleep study evaluation
Referrals:
Desirae Haynes MD [Active, Hematology / Oncology]
Yvonne Baron DO [Family Provider, Family Practice] - in one week
Prescriptions:
New
polyethylene glycol 3350 17 gram Powder In Packet
17 g PO DAILYPRN PRN (Reason: constipation) Qty: 0 0RF
pantoprazole 40 mg Tablet,Delayed Release (Dr/Ec)
40 mg PO BID Qty: 60 0RF
Continued
lisinopril 20 mg Tablet
20 mg PO HS
sucralfate 100 mg/mL suspension
1 g PO QIDPRN PRN (Reason: upper abd pain/chest pain) Qty: 500 0RF
acetaminophen [Tylenol] 325 mg Tablet
650 mg PO Q6HPRN PRN (Reason: mild pain)
bismuth subsalicylate [Pepto-Bismol] 262 mg Tablet,Chewable
2 tab PO DAILYPRN PRN (Reason: gerd)
simethicone 80 mg Tablet,Chewable
80 mg PO DAILYPRN PRN (Reason: gas pains)
baclofen 5 mg Tablet
5 mg PO Q8HPRN PRN (Reason: hicups) Qty: 10 0RF
Discharge Orders:
Discharge Patient (As Directed); Ordered 05/08/25
Ordered By: Sigifredo Aguiar
Discharge Date and Time
Discharge Date/Time: 05/08/25 15:30
Print Language: TELUGU
--- NOTE | 2025-05-08 14:04 | CM ---
Patient will d/c home today
[facility] accepted for services
Met w/ patient and spouse bedside, son will transport home
IMM verbally reviewed, copy provided, copy on chart
[facility]

Plan: Home w/ [facility]
[2025-05-08 14:24] VITALS: BP 156/90
--- NOTE | 2025-05-08 20:36 | W.PN.ONC2 ---
Today's Communication / Plan
-
Pt had tolerated FOLFOX well but did not tolerate cycle 1 FOLFIRI
Dose reduce irinotecan 20% with next cycle and consider a second dose of atropine prior to d/c from infusion suite with next treatment cycle.
Increase in Tbili noted, will monitor.
Tenatively scheduled for next cycle of treatment on 05/16.
Okay for D/C from Heme/Onc standpoint.
Impression
Impression
Nausea/abdominal pain post FOLFIRI bevacizumab administered 04/25
Leukopenia without growth factor support given posttreatment no absolute neutropenia ANC 1.8
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
Acute renal failure likely prerenal azotemia
Diarrhea at admission, now constipation
Intractable hiccups
Severe diarrhea within hours of completing FOLFIRI
Plan
Plan
Renal function improving
Will add Miralax for constipation (no BM since Thursday)
Trial of thorazine for hiccups. Can try Reglan 10mg 3-4x/d if no relief w/ thorazine
Monitor CBC
Next chemo (05/09) will be delayed
Subjective/Objective
Chief Complaint
Heme/Onc follow up of metastatic colon cancer, chemoenteritis
Subjective
Feeling better today. Had diarrhea within hours of FOLFIRI.
Vital Signs:
Vital Signs
Temp Pulse Resp BP Pulse Ox
99.2 F 97 18 156/90 94
05/08/25 14:24 05/08/25 14:24 05/08/25 14:24 05/08/25 14:24 05/08/25 14:24
Lab Results:
Laboratory Data
WBC 18.0 10^3/uL (4.8-10.8) H 05/08/25 06:28
Hgb 10.8 g/dL (13.0-18.0) L 05/08/25 06:28
Plt Count 109 10^3/uL (130-400) L D 05/08/25 06:28
eGFR > 60.00 05/08/25 06:28
Physical Exam
Awake, alert, non-toxic
== END 2025-05-08 15:30 | disposition home health service (06) | DRG 643 ==
LOC: 4 WEST ACU 19:30
PROVIDERS: Internal Medicine; Physician Assistant; Registered Nurse; ADMITTING PHYSICIAN Student in an Organized Health Care Education/Training Program; ATTENDING PHYSICIAN Internal Medicine; CONSULT PHYSICIAN Internal Medicine Hematology & Oncology; CONSULT PHYSICIAN Internal Medicine Nephrology; EMERGENCY PHYSICIAN Emergency Medicine; FAMILY PHYSICIAN Internal Medicine
DX: E22.2 Syndrome of inappropriate secretion of antidiuretic hormone (principal); D61.810 Antineoplastic chemotherapy induced pancytopenia; R65.20 Severe sepsis without septic shock; N17.9 Acute kidney failure, unspecified; C78.6 Secondary malignant neoplasm of retroperitoneum and peritoneum; C34.90 Malignant neoplasm of unspecified part of unspecified bronchus or lung; D61.818 Other pancytopenia; T45.1X5A Adverse effect of antineoplastic and immunosuppressive drugs, initial encounter; R19.7 Diarrhea, unspecified; R06.6 Hiccough; I95.9 Hypotension, unspecified; R11.2 Nausea with vomiting, unspecified; E86.0 Dehydration; E86.1 Hypovolemia; E87.6 Hypokalemia; I10 Essential (primary) hypertension; Z11.52 Encounter for screening for COVID-19; Z79.899 Other long term (current) drug therapy
CPT/HCPCS: 71046; 71275; 74018; 74177; 76700; 76770; 80048; 80053; 81003; 81015; 82248; 82607; 82728; 82746; 83540; 83550; 83605; 83690; 83735; 83935; 84100; 84300; 84484; 85025; 85027; 87040; 87086; 87502; 87811; 93005; 96361; 96374; 96375; 99284; 99285; Q9967

== ENCOUNTER → 2025-05-12 12:04 | Outpatient (REF) | payer MEDICARE, OTHER, SELFPAY ==
[2025-05-12 15:26] LABS: Hematocrit 27.7 % (39.0-52.0); Hemoglobin 9.3 g/dL (13.0-18.0); Mean Corp Hgb Conc. 33.6 g/dL (33.0-37.0); Mean Corpuscular Volume 90.8 fL (80.0-94.0); Nucleated Red Blood Cells % 0 % (-); Platelet Count 202 10^3/uL (130-400); Red Cell Dist. Width 13.8 % (11.5-14.5)
[2025-05-12 15:33] LABS: ALT (SGPT) 32 U/L (0-50); AST (SGOT) 30 U/L (17-59); Albumin 2.7 g/dl (3.5-5.0); Alkaline Phosphatase 144 U/L (38-126); Blood Urea Nitrogen 9 mg/dl (9-20); Calcium 7.6 mg/dl (8.4-10.2); Carbon Dioxide 34 mmol/L (22-30); Chloride 96 mmol/L (98-107); Glucose 138 mg/dl (70-99); Potassium 2.8 mmol/L (3.5-5.1); Sodium 133 mmol/L (135-145); Total Protein 5.6 g/dl (6.3-8.2); eGFR > 60.00
== END ==
LOC: HWLAB 12:04
PROVIDERS: ATTENDING PHYSICIAN Internal Medicine
DX: D61.810 Antineoplastic chemotherapy induced pancytopenia (principal); N17.9 Acute kidney failure, unspecified; E87.1 Hypo-osmolality and hyponatremia; E87.6 Hypokalemia
CPT/HCPCS: 36415; 80053; 85025

== ENCOUNTER → 2025-05-25 12:11 | Outpatient (REF) | payer MEDICARE, OTHER, SELFPAY ==
[2025-05-25 14:08] LABS: Blood Urea Nitrogen 14 mg/dl (9-20); Calcium 9.3 mg/dl (8.4-10.2); Chloride 97 mmol/L (98-107); Glucose 150 mg/dl (70-99); Potassium 4.1 mmol/L (3.5-5.1); Sodium 135 mmol/L (135-145); eGFR > 60.00
[2025-05-25 14:17] LABS: Carbon Dioxide 31 mmol/L (22-30)
== END ==
LOC: REG 12:11
PROVIDERS: ATTENDING PHYSICIAN Internal Medicine; OTHER PHYSICIAN Internal Medicine Hematology & Oncology
DX: E87.6 Hypokalemia (principal)
CPT/HCPCS: 36415; 80048

== ENCOUNTER → 2025-06-03 08:29 | Outpatient (REF) | payer MEDICARE, OTHER, SELFPAY ==
[2025-06-03 09:47] LABS: Hematocrit 29.3 % (39.0-52.0); Hemoglobin 9.4 g/dL (13.0-18.0); Mean Corp Hgb Conc. 32.1 g/dL (33.0-37.0); Mean Corpuscular Volume 92.7 fL (80.0-94.0); Nucleated Red Blood Cells % 0 % (-); Platelet Count 318 10^3/uL (130-400); Red Cell Dist. Width 13.3 % (11.5-14.5)
[2025-06-03 10:23] LABS: ALT (SGPT) 35 U/L (0-50); AST (SGOT) 26 U/L (17-59); Albumin 3.7 g/dl (3.5-5.0); Alkaline Phosphatase 91 U/L (38-126); Blood Urea Nitrogen 15 mg/dl (9-20); Calcium 9.4 mg/dl (8.4-10.2); Carbon Dioxide 29 mmol/L (22-30); Chloride 97 mmol/L (98-107); Glucose 152 mg/dl (70-99); Potassium 4.5 mmol/L (3.5-5.1); Sodium 134 mmol/L (135-145); Total Protein 7.4 g/dl (6.3-8.2); eGFR > 60.00
== END ==
LOC: REG 08:29
PROVIDERS: ATTENDING PHYSICIAN Internal Medicine Hematology & Oncology; FAMILY PHYSICIAN Internal Medicine
DX: C20 Malignant neoplasm of rectum (principal); C77.2 Secondary and unspecified malignant neoplasm of intra-abdominal lymph nodes; R91.1 Solitary pulmonary nodule; R22.42 Localized swelling, mass and lump, left lower limb
CPT/HCPCS: 36415; 80053; 82570; 84156; 85025

== ENCOUNTER → 2025-06-13 11:28 | Outpatient (REF) | payer MEDICARE, OTHER, SELFPAY | LOC: RAD 11:28 | PROVIDERS: ATTENDING PHYSICIAN Internal Medicine Hematology & Oncology | DX: C75.0 Malignant neoplasm of parathyroid gland (principal); C20 Malignant neoplasm of rectum; C77.2 Secondary and unspecified malignant neoplasm of intra-abdominal lymph nodes; R91.1 Solitary pulmonary nodule; R22.42 Localized swelling, mass and lump, left lower limb | CPT/HCPCS: 71260; 74177; Q9967 ==

== ENCOUNTER → 2025-06-16 10:42 | Outpatient (REF) | payer MEDICARE, OTHER, SELFPAY ==
[2025-06-16 11:49] LABS: Iron 62 ug/dl (49-181)
[2025-06-16 13:08] LABS: Total Iron Binding Capacity 257 ug/dl (261-462)
[2025-06-16 14:20] LABS: Ferritin 608.0 ng/ml (17.9-464.0)
== END ==
LOC: REG 10:42
PROVIDERS: ATTENDING PHYSICIAN Internal Medicine Hematology & Oncology; FAMILY PHYSICIAN Internal Medicine
DX: C20 Malignant neoplasm of rectum (principal); C77.2 Secondary and unspecified malignant neoplasm of intra-abdominal lymph nodes; R91.1 Solitary pulmonary nodule; R22.42 Localized swelling, mass and lump, left lower limb
CPT/HCPCS: 36415; 82728; 83540; 83550

== ENCOUNTER → 2025-06-19 11:57 | Outpatient (REF) | payer MEDICARE, OTHER, SELFPAY ==
[2025-06-19 12:34] LABS: Hematocrit 32.8 % (39.0-52.0); Hemoglobin 10.3 g/dL (13.0-18.0); Mean Corp Hgb Conc. 31.4 g/dL (33.0-37.0); Mean Corpuscular Volume 92.4 fL (80.0-94.0); Nucleated Red Blood Cells % 0 % (-); Platelet Count 231 10^3/uL (130-400); Red Cell Dist. Width 16.6 % (11.5-14.5)
[2025-06-19 12:37] LABS: ALT (SGPT) 24 U/L (0-50); AST (SGOT) 19 U/L (17-59); Albumin 3.9 g/dl (3.5-5.0); Alkaline Phosphatase 113 U/L (38-126); Blood Urea Nitrogen 9 mg/dl (9-20); Calcium 8.9 mg/dl (8.4-10.2); Carbon Dioxide 30 mmol/L (22-30); Chloride 101 mmol/L (98-107); Glucose 126 mg/dl (70-99); Potassium 4.0 mmol/L (3.5-5.1); Sodium 138 mmol/L (135-145); Total Protein 7.1 g/dl (6.3-8.2); eGFR > 60.00
== END ==
LOC: REG 11:57
PROVIDERS: ATTENDING PHYSICIAN Internal Medicine Hematology & Oncology; FAMILY PHYSICIAN Internal Medicine
DX: C20 Malignant neoplasm of rectum (principal); C77.2 Secondary and unspecified malignant neoplasm of intra-abdominal lymph nodes; R91.1 Solitary pulmonary nodule; R22.42 Localized swelling, mass and lump, left lower limb
CPT/HCPCS: 36415; 80053; 82570; 84156; 85025